=== PATIENT | male | born 1980 | race Caucasian/White ===

== ENCOUNTER → 2020-10-04 06:58 | Outpatient (CLI) | payer OTHER, SELFPAY ==
--- NOTE | ~2020-10-04 | XR_ITS ---
EXAMINATION: XR thoracic spine 3V DATE: 10/04/2020 07:09 INDICATION: Thoracic back pain TECHNIQUE: AP, lateral and lateral swimmer's views of the thoracic spine were obtained. COMPARISON: None. FINDINGS: There is no fracture, dislocation, or subluxation. The vertebral body heights, alignment, a nd intervertebral disc spaces are normal. The paravertebral soft tissues are unremarkable. There is m ild lower thoracic levocurvature. IMPRESSION: 1. No acute osseous abnormality. Reviewed, dictated and finalized at location B.
== END ==
PROVIDERS: PCP Family Medicine; Visit Provider Physician Assistant
DX: M54.9 Dorsalgia, unspecified (principal)
CPT/HCPCS: 72072

== ENCOUNTER 2021-10-26 14:40 | Emergency (ER) | payer OTHER, SELFPAY ==
[2021-10-26 14:47] VITALS: BP 132/62; PULSE 85; RESP 20; TEMP 36.7; O2SAT 99
--- NOTE | 2021-10-26 14:55 | ED.GENADULT ---
HPI - General Adult General Chief complaint: Skin/Abscess/Foreign Body Stated complaint: stung by wasp in chest Source: patient Mode of arrival: ambulatory Limitations: no limitations History of Present Illness HPI narrative: Patient presents for evaluation of swelling and redness to the right anterior chest wall. He indicates he was stung by a wasp in that area thirty minutes ago. He denies any difficulty breathing or swallowing. He had a similar response in the past in the LUE after being stung. In the past he received a steroid injection, oral steroids and abx. He has no other associated symptoms. Related Data Allergies Allergy/AdvReac Type Severity Reaction Status Date / Time No Known Allergies Allergy Unknown Verified 10/26/21 14:52 Review of Systems Review of Systems: CONSTITUTIONAL: Denies fever, chills, or sweats. EYES: Denies visual changes, redness, or discharge. ENT: Denies rhinorrhea, congestion, sore throat, or otalgia. CARDIOVASCULAR: Denies chest pain, palpitations, or edema. RESPIRATORY: Denies cough or dyspnea. GASTROINTESTINAL: Denies abdominal pain, nausea, vomiting, or diarrhea. GENITOURINARY: Denies dysuria or hematuria. SKIN: Reports redness and swelling to the right anterior chest wall MUSCULOSKELETAL: Denies back pain, joint pain, or myalgia. NEUROLOGIC: Denies headache, numbness, dizziness, or weakness. PSYCHIATRIC: Denies anxiety or depression. [facility] Past Medical History Medical History (Updated 10/26/21 @ 15:32 by Alin Ruby, SPEECH PATHOLOGIST ASSISTANT, ) ADHD Low testosterone level in male Migraine Surgical History Surgical History Hx of ESTHELA Family History Family History Father In good health Mother Breast cancer Bone cancer Skin cancer Heart disease Social History Social History (Updated 10/26/21 @ 15:09 by Alin Ruby [facility], ) Smoking status: Never smoker Second hand tobacco smoke exposure: No Alcohol intake: never Substance use: never Substance use type: does not use Living arrangements: with family Gender identity (if verbalized by the patient): Male Sexual Orientation (if Verbalized by the Patient): Straight or Heterosexual Spiritual care concerns: No Exam Narrative: GENERAL: Well-appearing, well-nourished, and in no acute distress. HEAD: Normocephalic, atraumatic. EYES: PERRLA and EOMI. ENT: Nares clear, no rhinorrhea or epistaxis. Mucous membranes moist. Oropharynx without tonsillar hypertrophy exudate or other lesions. Bilateral TMs pearly heart nonbulging NECK: Supple. No adenopathy or masses. No carotid bruits or JVD CHEST: Clear to auscultation. No respiratory distress. No wheezes rales or rhonchi HEART: Regular rate and rhythm. No murmur heard. Normal peripheral pulses. ABDOMEN: Soft, nontender, nondistended, normal active bowel sounds. EXTREMITIES: Normal range of motion. No edema. SKIN: Pinpoint puncture to right anterior chest wall with 8x9cm area of surrounding erythema in annular formation NEURO: No focal deficits. Alert and oriented x3. PSYCH: Normal mood and affect. Course Course Emergency Course: This is a 41-year-old male that presented following an insect sting. He was given solumedrol 125mg IM and benadryl 50mg PO while here. He was monitored here and was clinically stable. Will DC with prednisone and Benadryl. He should follow up outpatient for further evaluation and treatment and go to ER for respiratory distress or decline in condition. Patient in agreement with plan of care. Level of Care: Express Care Visit Vital Signs Vital signs: Vital Signs Temperature 36.7 C 10/26/21 14:47 Pulse Rate 85 10/26/21 14:47 Respiratory Rate 20 10/26/21 14:47 Blood Pressure 132/62 10/26/21 14:47 Pulse Oximetry 99 10/26/21 14:47 Oxygen Delivery Room Air 10/26/21 14:47 Temperature 36.7 C
[2021-10-26] MEDS: diphenhydrAMINE HCl CAP 25 MG CAPSULE 50 MG PO (15:02)
[2021-10-26] MEDS: methylPREDNISolone SOD SUCC 125 MG VIAL IM (15:02)
== END 2021-10-26 15:38 | disposition home or self-care (01) ==
PROVIDERS: Emergency Provider Nurse Practitioner; PCP Family Medicine
DX: T63.461A Toxic effect of venom of wasps, accidental (unintentional), initial encounter (principal)
CPT/HCPCS: 96372; 99213; A9270; G0463; J2930

== ENCOUNTER → 2022-03-15 08:00 | Outpatient (CLI) | payer OTHER, SELFPAY ==
--- NOTE | ~2022-03-15 | MR_ITS ---
EXAMINATION: MR brain/brain stem wo con DATE: 03/15/2022 08:48 INDICATION: Chronic migraine headache. TECHNIQUE: Magnetic resonance imaging (MRI) of the brain and brainstem was performed without intraven ous contrast. COMPARISON: Brain MRI 02/19/2017 FINDINGS: There is no intracranial hemorrhage, acute infarction, or abnormal intracranial mass lesion . The ventricles are normal in size. The mastoid air cells are normal. There is mild mucosal thickeni ng in the paranasal sinuses. The orbits are normal. IMPRESSION: 1. Normal brain. Reviewed, dictated and finalized at location A. [employer] IMPRESSION: 1. Normal brain.
== END ==
PROVIDERS: PCP Family Medicine; Visit Provider Family Medicine
DX: G43.709 Chronic migraine without aura, not intractable, without status migrainosus (principal); Z82.0 Family history of epilepsy and other diseases of the nervous system
CPT/HCPCS: 70551

== ENCOUNTER → 2022-05-12 08:13 | Outpatient (CLI) | payer OTHER, SELFPAY ==
--- NOTE | ~2022-05-12 | MR_ITS ---
MRI of the left shoulder Technique: Axial proton-density fat-sat images, coronal proton density fat-sat and T2 fat-sat images, and sagittal T1-weighted and T2 fat-sat images were acquired. Clinical History: Rotator cuff disorder Findings: There is no significant degenerative change of the AC joint. No subacromial spur. Coracocla vicular, coracoacromial, and coracohumeral ligaments are intact. Supraspinatus and infraspinatus tendons are intact, without partial or full-thickness tear. Subscapul luisana tendon is intact. Tendon of the long head of the biceps is intact. There is tearing of the anteroinferior labrum. No degenerative change or effusion of the glenohumeral joint. Inferior humeral ligament is intact. No fluid distention of subacromial/subdeltoid bursa. No muscle atrophy or edema identified. Incidental note is made of a 2 cm intramedullary lesion in the scapular spine, with an apparent thin hypointense margin, most compatible with a thin sclerotic margin, and central heterogeneous relative T2 hyperintensity overall (sagittal T2 fat-sat image 9, coronal image 18). Impression: Tearing of the anteroinferior labrum. Correlate for prior shoulder dislocation/Bankhart lesion. No rotator cuff abnormality seen. 2 cm intramedullary lesion in the scapular spine, as detailed above. Precise etiology is indeterminat e on this exam, but imaging features are consistent with a benign lesion. Reviewed, dictated and finalized at [facility]. ETTE DEALER Impression: Tearing of the anteroinferior labrum. Correlate for prior shoulder dislocation/ Bankhart lesion. No rotator cuff abnormality seen. 2 cm intramedullary lesion in the scapular spine, as detailed above. Precise et iology is indeterminate on this exam, but imaging features are consistent with a benign lesion.
== END ==
PROVIDERS: PCP Family Medicine; Visit Provider Family Medicine
DX: M67.912 Unspecified disorder of synovium and tendon, left shoulder (principal); M75.102 Unspecified rotator cuff tear or rupture of left shoulder, not specified as traumatic
CPT/HCPCS: 73221

== ENCOUNTER 2022-09-17 23:03 | Emergency (ER) | payer OTHER, SELFPAY ==
--- NOTE | ~2022-09-17 | XR_ITS ---
XR finger 1st RT min 2V 09/17/2022 23:33 INDICATION: Right second finger pain after injury PROCEDURE: 2 views right second finger COMPARISON: No prior studies for comparison. FINDINGS: Fracture, dislocation or subluxation is not identified. The soft tissues appear within norm al limits. No foreign bodies are identified. IMPRESSION: 1: NO ACUTE BONE OR JOINT ABNORMALITY IDENTIFIED. Reviewed, dictated and finalized at location L.
[2022-09-17 23:04] VITALS: BP 124/87; PULSE 57; RESP 18; TEMP 36.6; O2SAT 98
--- NOTE | 2022-09-18 00:40 | PC.NURSE ---
Pt asked this RN to clean his wound while he's waiting. Laceration cleansed with sterile saline. Clean gauze applied and secured with coban. Pt inquired about wait times. Informed pt that this RN cannot guarantee how much longer the wait will be. Pt states he wants to go home. This RN advised pt to return to ED immediately if he has any new or worsening symptoms, to follow up with his PCP in the morning, and monitor for signs of infection such as redness, swelling, foul drainage and fever. Pt verbalized understanding and ambulated out of department with steady gait.
== END 2022-09-18 01:34 | disposition left against medical advice (07) ==
LOC: ANHED 09-18 00:50
PROVIDERS: Emergency Provider Emergency Medicine; PCP Family Medicine
DX: S69.91XA Unspecified injury of right wrist, hand and finger(s), initial encounter (principal); Z53.21 Procedure and treatment not carried out due to patient leaving prior to being seen by health care provider; X58.XXXA Exposure to other specified factors, initial encounter
CPT/HCPCS: 73140; 99199

== ENCOUNTER 2023-03-09 09:26 | Emergency (ER) | payer OTHER, SELFPAY ==
--- NOTE | ~2023-03-09 | CT_ITS ---
EXAMINATION: CT abdomen pelvis w con DATE: 03/09/2023 13:36 INDICATION: Nausea, vomiting and diarrhea TECHNIQUE: Computed tomography (CT) of the abdomen and pelvis was performed with 100 cc Omnipaque 350 intravenous contrast. The dose-length product was 866.45 mGy-cm. Automated exposure control and iter ative reconstruction technique were employed. COMPARISON: No prior studies for comparison. FINDINGS: There is dependent atelectasis of the lung bases. Heart size normal. No significant pleural or pericardial effusion.. There is a liver cyst of the right hepatic lobe. The spleen, pancreas, adr enal glands and left kidney are unremarkable. There is a subcentimeter hypodensity of the right kidne y, most likely benign cysts. Gallbladder is present. No significant vascular abnormality. No lymphade nopathy. No free air or free fluid. Nonobstructive bowel pattern. Normal appendix. Colonic diverticul osis without evidence for diverticulitis. No abnormal pelvic masses or fluid collections. No acute os seous abnormality. IMPRESSION: 1. No acute abdominal abnormality. Reviewed, dictated and finalized at location B. ARCH SPECIALIST
--- NOTE | ~2023-03-09 | XR_ITS ---
EXAMINATION: XR chest 2V 03/09/2023 13:07 INDICATION: Epigastric pain PROCEDURE: 2 view chest COMPARISON: No prior studies for comparison. FINDINGS: The lungs are clear. The cardiomediastinal silhouette is within normal limits. There are no pleural effusions. There is no pneumothorax suspected. IMPRESSION: 1: NO ACUTE CARDIOPULMONARY DISEASE. Reviewed, dictated and finalized at location B. WORKER
--- NOTE | 2023-03-09 12:52 | ED.NAVMDI ---
HPI - Nausea/Vomiting/Diarrhea General Chief complaint: Nausea/Vomiting/Diarrhea <Geetha Justin PA-C - Last Filed: 03/09/23 13:08> Stated complaint: NV <Geetha Justin PA-C - Last Filed: 03/09/23 13:08> Time Seen by Provider: 03/09/23 13:55 <Geetha Justin PA-C - Last Filed: 03/09/23 13:08> History of Present Illness HPI Narrative: 42-year-old male for evaluation for nausea, bilious vomiting, diarrhea since 8:00 p.m. last night. Patient states he did have dinner last night, he ate chili for lunch around 1:00 p.m.. He reports associated suprapubic and right upper quadrant abdominal pain. Denies known fevers, chest pain or shortness of breath, dysuria or hematuria. Denies melena, hematochezia or hematemesis. <Geetha Justin PA-C - Last Filed: 03/09/23 13:08> Related Data Allergies/Adverse reactions: Allergies Allergy/AdvReac Type Severity Reaction Status Date / Time No Known Allergies Allergy Unknown Verified 03/09/23 12:49 <Geetha Justin PA-C - Last Filed: 03/09/23 13:08> Review of Systems Review of Systems: CONSTITUTIONAL: Denies fever, chills, or sweats. EYES: Denies visual changes, redness, or discharge. ENT: Denies rhinorrhea, congestion, sore throat, or otalgia. CARDIOVASCULAR: Denies chest pain, palpitations, or edema. RESPIRATORY: Denies cough or dyspnea. GASTROINTESTINAL: See HPI GENITOURINARY: Denies dysuria or hematuria. SKIN: Denies rash or itching. MUSCULOSKELETAL: Denies back pain, joint pain, or myalgia. NEUROLOGIC: Denies headache, numbness, or weakness. PSYCHIATRIC: Denies anxiety or depression. <Geetha Justin PA-C - Last Filed: 03/09/23 13:08> PMFSH Past Medical History Medical History: Medical History ADHD Low testosterone level in male Migraine <Geetha Justin PA-C - Last Filed: 03/09/23 13:08> Surgical History Surgical History: Surgical History Hx of LASIK <Geetha Justin PA-C - Last Filed: 03/09/23 13:08> Family History Family History: Family History Father In good health Mother Breast cancer Bone cancer Skin cancer Heart disease <Geetha Justin PA-C - Last Filed: 03/09/23 13:08> Social History Social History: Social History Smoking status: Never smoker Second hand tobacco smoke exposure: No Alcohol intake: never Substance use: never Substance use type: does not use Living arrangements: with family Gender identity (if verbalized by the patient): Male Sexual Orientation (if Verbalized by the Patient): Straight or Heterosexual Spiritual care concerns: No <Geetha Justin PA-C - Last Filed: 03/09/23 13:08> Exam Narrative: GENERAL: Well-appearing, well-nourished, and in no acute distress. HEAD: Normocephalic, atraumatic. ENT: Mucous membranes moist. NECK: Supple. CHEST: Clear to auscultation. No respiratory distress. HEART: Regular rate and rhythm. No murmur heard. Normal peripheral pulses. ABDOMEN: Normoactive bowel sounds. Abdomen soft with mild tenderness in the suprapubic region right upper quadrant. Negative Bojorquez's. No CVA tenderness. No guarding, rebound or rigidity. NEURO: No focal deficits. Alert and oriented x3 <Geetha Justin PA-C - Last Filed: 03/09/23 13:08> Course Course Emergency Course: Patient resting comfortably. Abdomen soft nontender. Patient hydrated and given antiemetics. Labs and imaging unremarkable. Patient felt appropriate for discharge home. <Horacio Rodriguez MD - Last Filed: 03/09/23 15:04> Vital Signs Vital signs: Vital Signs Pulse Rate 86 03/09/23 13:01 Respiratory Rate 18 03/09/23 13:01 Blood Pressure 119/76 03/09/23 13:01 Pulse Oximetry 98 03/09/23
[2023-03-09] MEDS: ONDANSETRON INJ 4 MG/2 ML VIAL IV PUSH ×2 (12:57→15:35)
[2023-03-09] MEDS: FAMOTIDINE 20 MG/2 ML VIAL IV PUSH (12:58)
[2023-03-09 13:01] VITALS: BP 119/76; PULSE 86; RESP 18; O2SAT 98
[2023-03-09 13:01] LABS: Basophils Percent Auto 0.2 % (0.2-1.2); Eosinophils Percent Auto 0.1 % (0-4.4); Hematocrit 48.5 % (42.0-52.0); Hemoglobin 16.9 g/dL (14.0-18.0); Immature Granulocyte Absolute 0.03 K/mm3 (0.00-0.031); Immature Granulocyte Percent A 0.3 % (0-0.5); Lymphocytes Absolute Auto 0.97 K/mm3 (0.9-3.2); Lymphocytes Percent Auto 9.4 % (18.3-44.2); Mean Corpuscular HGB Conc 34.8 g/dl (32-36); Mean Corpuscular Hemoglobin 30.4 pg (26-34); Mean Corpuscular Volume 87.2 fl (80-100); Mean Platelet Volume 8.1 fl (7.4-10.4); Monocytes Absolute Auto 0.7 K/mm3 (0.1-0.6); Monocytes Percent Auto 6.8 % (2.6-8.5); Neutrophils Absolute Auto 8.6 K/mm3 (1.3-6.7); Neutrophils Percent Auto 83.2 % (45.5-73.1); Platelet Count Result 203 k/mm3 (150-375); Red Blood Count 5.56 M/mm3 (4.6-6.20); Red Cell Distribution Width 11.9 % (11.5-14.5); White Blood Count 10.4 K/mm3 (4.5-10.0)
[2023-03-09 13:13] LABS: Alanine Aminotransferase 26 U/L (6-50); Albumin Level 4.6 g/dL (3.5-5.1); Alkaline Phosphatase 64 U/L (38-126); Anion Gap 12 mmol/L (8-16); Aspartate Amino Transferase 30 U/L (17-59); Bilirubin,Total 1.3 mg/dL (0.2-1.3); Blood Urea Nitrogen 16 mg/dL (9-20); Calcium 9.4 mg/dL (8.4-10.2); Carbon Dioxide 26 mmol/L (22-30); Chloride 100 mmol/L (98-107); Estimated CRCL calculation 90 ml/min; Estimated Glomerular Filt Rate > 60; Glucose 105 mg/dL (65-110); Lipase 104 U/L (23-300); Potassium 3.6 mmol/L (3.4-5.0); Sodium 138 mmol/L (137-145)
[2023-03-09 13:44] VITALS: BP 108/68; PULSE 96; RESP 18; TEMP 37; O2SAT 98
[2023-03-09] MEDS: SODIUM CHLORIDE 0.9% IV 1,000 ML 999 ML IV CONT (15:34)
[2023-03-09 16:37] VITALS: BP 125/79; PULSE 96; RESP 18; TEMP 36.8; O2SAT 98
== END 2023-03-09 16:30 | disposition home or self-care (01) ==
PROVIDERS: Physician Assistant; Emergency Provider Emergency Medicine; PCP Family Medicine
DX: R11.2 Nausea with vomiting, unspecified (principal)
CPT/HCPCS: 36415; 71046; 74177; 80053; 83690; 85025; 96361; 96374; 96375; 96376; 99284; J2405; J7030; Q9967

== ENCOUNTER 2024-05-04 21:08 | Emergency (ER) | payer OTHER, SELFPAY ==
--- NOTE | ~2024-05-04 | CT_ITS ---
EXAMINATION: CT brain wo con DATE: 05/04/2024 21:44 INDICATION: double vision and vision misalignment . TECHNIQUE: Computed tomography (CT) of the head was performed without intravenous contrast. The mA wa s adjusted according to patient size. Iterative reconstruction technique was employed. The dose-lengt h product was 681.00 mGy-cm. COMPARISON: MR brain 03/15/2022. FINDINGS: No acute intracranial hemorrhage or extra-axial fluid collection. No hydrocephalus, mass, or herniation. No acute ischemic infarct. Unremarkable dural venous sinus attenuation. No acute osseous abnormality. Retention cysts/polyps in the right maxillary sinus, the remaining aerated spaces are clear. IMPRESSION: No acute intracranial process. Reviewed, dictated and finalized at location K. SUPERVISOR
--- OUTSIDE RECORDS SUMMARY | 2024-05-04 21:10 | XMS_ITS | Referral Summary ---
Author Organization [facility] Address [address] [place] [id number] Care Team Providers Care Store Hand Name Role Phone Deon Coronel MD Primary Care Provider [phone] Shanae Aburto Unavailable [phone] Encounters Date Type Department Care Team Description 04/12/2024 9:04 AM SISAL OPERATOR - 04/12/2024 11:59 PM SISAL OPER[place] [address] Well adult exam; Screening for thyroid disorder; Screening, lipid; Low libido; Need for hepatitis B screening test Discharge Disposition: Discharge to home or self care 04/12/2024 9:00 AM SISAL OPERATOR Lab [facility] Outpatient Lab at [address] [phone] 04/12/2024 8:00 AM SISAL OPERATOR Office Visit [facility] Primary Care at [address] [phone] Deon Coronel MD Well adult exam (Primary Dx); Screening for thyroid disorder; Screening, lipid; Need for hepatitis B screening test; Low libido from Last 3 Months Allergies Active Allergy Reactions Criticality Noted Date Comments Wasp Venom Swelling Medium 12/26/2021 Medications multivitamin capsule Take 1 capsule by mouth daily Active EPINEPHrine 0.3 mg/0.3 mL auto-injection syringeIndication s:Anaphylaxis Inject 0.3 mL (0.3 mg total) into the muscle as instructed as needed for anaphylaxis Call 911 after use. 2 each 022 Active ondansetron ODT (ZOFRAN-ODT) 4 mg disintegrating tablet Take 1 tablet (4 mg total) by mouth every 8 (eight) hours as needed for nausea or vomiting 023 Active dextroamphetamine sulfate (DEXTROSTAT) 10 mg tabletIndications :Attention-Defici t Hyperactivity Disorder Take 1 tablet (10 mg total) by mouth teaching manager before breakfast 30 tablet 024 Active naproxen (NAPROSYN) 500 mg tablet TAKE 1 TABLET BY MOUTH TWICE A DAY WITH MEALS 60 tablet 024 2024 Discontinued Active Problems Problem Noted Date Diagnosed Date Low libido 04/12/2024 Chest pain 08/11/2023 Bankart lesion of left shoulder 11/25/2022 Well adult exam 03/02/2022 Assessment & Plan (04/12/2024 8:47 AM SISAL OPERATOR): A(n) yearly well adult visit has been performed today. Edin Petty is not up to date on screening tests. He is in need of thyroid screen, testosterone screen, Cholesterol screening, and Hepatitis B screen. He is up to date on needed preventative vaccinations. We discussed healthy lifestyle habits, educational material has been given. Medications reviewed, changes documented as per the medical record and discussed with patient along with risks vs benefits. Specific topics reviewed: drugs, ETOH, and tobacco, importance of regular dental care, importance of regular exercise, importance of varied diet, limit TV, media violence, minimize junk food, and seat belts. Return in 1 year Assessment & Plan (04/14/2023 11:34 AM SISAL OPERATOR): A(n) yearly well adult visit has been performed today. Edin Petty is not up to date on screening tests. He is in need of Cholesterol screening. He is not up to date on needed preventative vaccinations; He is in need of Influenza. We discussed healthy lifestyle habits, educational material has been given. Medications reviewed, changes documented as per the medical record and discussed with patient along with risks vs benefits. Return in 1 year Assessment & Plan (03/02/2022 2:28 PM SISAL OPERATOR): A(n) yearly well adult visit has been performed today. Edin Petty is up to date on screening tests. He is in need of None- no screening indicated at this time. He is not up to date on needed preventative vaccinations; He is in need of Influenza and Covid-19 (booster). Neuroimaging ordered for [facility] Trial Ubrelvy PRN 100 mg Labs as ordered Continuing current regimen otherwise Chronic migraine without aur a without status migrainosus, not intractable 12/26/2021 Residual hemorrhoidal skin tags 05/27/2021 Assessment & Plan (05/27/2021 12:55 PM SISAL OPERATOR): anusol HC x 2 weeks Referral to general surgeon entered Docusate (OTC) trial as well Try probiotic (Align, Culturelle, etc) x 2 weeks as well Medial epicondylitis of right elbow 02/02/2021 Attention deficit hyperactiv ity disorder (ADHD), combined type 01/30/2021 Overview (01/30/2021): Diagnosed in 2018 Migraine with aura 11/23/2013 Overview (07/11/2016): Migraine w/ aura Immunizations Name Administration Dates Next Due Influenza, Quadrivalent, Sara l Culture-based MDCK, Preservative Free, Antibiotic Free, Intramuscular 01/23/2021,01/07/2020 Influenza, Quadrivalent, Spl it, Preservative Free, Intramuscular 11/04/2013 Influenza, Trivalent, IM (MDV) 10/31/2013 Influenza, Unspecified 04/14/2023(Deferr ed: Patient Refused),04/06/2023(Deferred: Patient Refused),05/07/2022(Deferred: Patient Refused),04/06/2022(Deferred: Patient Refused),01/05/2022(Deferred: Patient Refused) TD Preservative Free 11/04/2013 Tdap 10/31/2013 Social History Tobacco Use Types Packs/Day Years Used Date Smoking Tobacco: Never Cigarettes Smokeless Tobacco: Never Tobacco Cessation:Counseling Given: Not Answered Alcohol Use Standard Drinks/Week Comments Yes 0 (1 standard drink = 0.6 oz pur e alcohol) Humiliation, Afraid, Rape, and Kick questionnair e Answer Date Recorded Within the last year, have y ou been afraid of your partner or ex-partner? No 01/30/2021 Within the last year, have y ou been humiliated or emotionally abused in other ways by your partner or ex-partner? No Within the last year, have y ou been kicked, hit, slapped, or otherwise physically hurt by your partner or ex-partner? No 01/30/2021 Within the last year, have y ou been raped or forced to have any kind of sexual activity by your partner or ex-partner? No 01/30/2021 AUDIT-C Answer Date Recorded Frequency of Alcohol Consumption Not on file 12/04/2022 Q2: How many drinks containi ng alcohol do you have on a typical day when you are drinking? Patient does not drink Frequency of Binge Drinking Not on file 11/06 PHQ-2 Answer Date Recorded PHQ-2 Total Score (If total score is 3 or more points, staff should administer the PHQ-9) 0 04/12/2024 Exercise Vital Sign Answer Date Recorde d On average, how many days pe r week do you engage in moderate to strenuous exercise (like a brisk walk)? 4 days 01/30/2021 On average, how many minutes do you engage in exercise at this level? 60 min 01/30/2021 Personal Safety Answer Date Recorded Have you ever been in or are you currently in a harmful physical or emotional relationship or is someone making you feel afraid or unsafe? Denies 12/11/2022 Education Answer Date Recorded What is the highest level of school you have completed or the highest degree you have received? 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 Last Filed Vital Signs Vital Sign Reading Time Taken Comments Blood Pressure 120/86 04/12/2024 8:13 AM SISAL OPERATOR Pulse 75 04/12/2024 8:13 AM SISAL OPERATOR Temperature 36.6 ??C (97.8 ??F) 04/12/2024 8:13 AM CS T Respiratory Rate 18 08/11/2023 10:02 AM CDT Oxygen Saturation 95% 04/12/2024 8:13 AM SISAL OPERATOR Inhaled Oxygen Concentration - - Weight 102.1 kg (225 lb) 04/12/2024 8:13 AM SISAL OPERATOR Height 185.4 cm (6' 1 ) 04/12/2024 8:13 AM SISAL OPERATOR Body Mass Index 29.69 04/12/2024 8:13 AM SISAL OPERATOR Plan of Treatment Not on file Medical Devices Implanted Type Area Cable Ferry Operator Device Identifier Shelf Expiration Date Model / Serial / Lot [employer] Deforest Suture 2.4mm Pushlock Biocomposite 11.3mm 1 Fiberwire [id number] - [id number] Implanted:Qty: 1 on 12/11/2022 by Drew Briscoe MD at [facility] Left: Shoulder [employer] 06/03/2024 AR-2922BC / / [id number] [employer] Deforest Suture 2.4mm Pushlock Biocomposite 11.3mm 1 Fiberwire [id number] - [id number] Implanted:Qty: 1 on 12/11/2022 by Drew Briscoe MD at [facility] Left: Shoulder [employer] 06/03/2024 AR-2922BC / / [id number] [employer] Deforest Suture 2.4mm Pushlock Biocomposite 11.3mm 1 Fiberwire [id number] - [id number] Implanted:Qty: 1 on 12/11/2022 by Drew Briscoe MD at [facility] Left: Shoulder [employer] 05/06/2024 AR-2922BC / / [id number] [employer] Fiberlink Arthrex Suturetape 1.3mm Tape Suture Nonabsorbable Ar-7535 - [id number] Implanted:Qty: 5 on 12/11/2022 by Drew Briscoe MD at [facility] Left: Shoulder [employer] AR-7535 / / [employer] Deforest Suture 2.4mm Pushlock Biocomposite 11.3mm 1 Fiberwire Ar-[id number] - [id number] Implanted:Qty: 1 on 12/11/2022 by Drew Briscoe MD at [facility] Left: Shoulder [employer] 06/03/2024 AR-2922BC / / [id number] [employer] Deforest Suture 2.4mm Pushlock Biocomposite 11.3mm 1 Fiberwire Ar-[id number] - [id number] Implanted:Qty: 1 on 12/11/2022 by Drew Briscoe MD at [facility] Left: Shoulder [employer] 06/03/2024 AR-2922BC / / [id number] Procedures Procedure Name Priority Date/Time Associated Diagnosis Comments EGFR Routine 04/12/2024 9:04 AM SISAL OPERATOR Well adult exam DIFFERENTIAL AUTO Routine 04/12/2024 9:0 4 AM SISAL OPERATOR Well adult exam TOTAL TESTOSTERONE Routine 04/12/2024 9: 04 AM SISAL OPERATOR Low libido TSH Routine 04/12/2024 9:04 AM SISAL OPERATOR Screening, lipid Low libido LIPID PANEL Routine 04/12/2024 9:04 AM SISAL OPERATOR Screening for thyroid disorder COMPREHENSIVE METABOLIC PANEL Routine 04/12/2024 9:04 AM SISAL OPERATOR Well adult exam CBC WITH AUTO DIFFERENTIAL Routine 04/12/2024 9:04 AM SISAL OPERATOR Well adult exam HEPATITIS B SURFACE ANTIBODY (IMMUNE STATUS) Routine 04/12/2024 9:04 AM SISAL OPERATOR Need for hepatitis B screening test HEPATITIS C ANTIBODY Routine 08/11/2023 10:56 AM CDT Encounter for hepatitis C screening test for low risk patient from Last 3 Months or Most Recently Relevant to Health Maintenance Results * eGFR (04/12/2024 9:04 AM SISAL OPERATOR) eGFR 79 >=60 mL/min/1. 73 m2 Comment: Interpretive Data Reference Interval Normal ?>/= 90 mL/min/1.73m2 Mildly decreased* ? 60 - 89 mL/min/1.73m2 Mildly to moderately decreased ?45 - 59 mL/min/1.73m2 Moderately to severely decreased ??30 - 44 mL/min/1.73m2 Severely decreased ?15 - 29 mL/min/1.73m2 Kidney Failure ?< 15 ??mL/min/1.73m2 *Relative to young adult level Estimated glomerular filtration rate is determined by the 2020 CKD-EPI equation recommended by the National Kidney Foundation (A Unifying Approach to GFR Estimation: Recommendations of the NKF-ASK Task Force on Reassessing the Inclusion of Race in Diagnosing Kidney Disease, JASN 2020). The CKD-EPI equation should not be used for patients with unstable renal function and has not been validated in children and those over 70. Current interpretive data was last reviewed 2021. Blood 04/12/2024 9:04 AM SISAL OPERATOR 04/12/2024 3:47 PM SISAL OPERATOR Deon Coronel MD LAB BLOOD ORDERABLES Final Result [facility] [id number] Department [place] [address] * Differential, auto (04/12/2024 9:04 AM SISAL OPERATOR) Neutrophil abs 3.6 1.5 - 6.5 K/cumm Imm gran abs 0.0 0.0 - 0.1 K/cumm [facility] Lymphocyte abs 2.9 0.8 - 3.3 K/cumm [facility] Monocyte abs 0.6 0.2 - 0.8 K/cumm [facility] Eosinophil abs 0.1 0.0 - 0.5 K/cumm [facility] Basophil abs 0.0 0.0 - 0.1 K/cumm [facility] Neutrophil pct 49.8 % [facility] Comment: Interpretive Data Percent cell count reference ranges are not reported, since discordance with absolute values may lead to misinterpretation of CBC data. Current Interpretive Data was last revised on 2017. Imm gran pct 0.3 % [facility] Comment: Interpretive Data Percent cell count reference ranges are not reported, since discordance with absolute values may lead to misinterpretation of CBC data. Current Interpretive Data was last revised on 2017. Lymphocyte pct 40.4 % [facility] Comment: Interpretive Data Percent cell count reference ranges are not reported, since discordance with absolute values may lead to misinterpretation of CBC data. Current Interpretive Data was last revised on 2017. Monocyte pct 7.8 % [facility] Comment: Interpretive Data Percent cell count reference ranges are not reported, since discordance with absolute values may lead to misinterpretation of CBC data. Current Interpretive Data was last revised on 2017. Eosinophil pct 1.2 % [facility] Comment: Interpretive Data Percent cell count reference ranges are not reported, since discordance with absolute values may lead to misinterpretation of CBC data. Current Interpretive Data was last revised on 2017. Basophil pct 0.5 % [facility] Comment: Interpretive Data Percent cell count reference ranges are not reported, since discordance with absolute values may lead to misinterpretation of CBC data. Current Interpretive Data was last revised on 2017. Blood 04/12/2024 9:04 AM SISAL OPERATOR 04/12/2024 3:33 PM SISAL OPERATOR us Deon Coronel MD LAB BLOOD ORDERABLES Final Result [facility] [address] [place] [address] * (ABNORMAL) CBC with auto differential (04/12/2024 9:04 AM SISAL OPERATOR) WBC 7.3 3.8 - 9.9 K/cumm Hgb 15.6 13.0 - 17.5 g/dL [facility] Hct 49.4 38.9 - 50.3 % [facility] Plt 250 150 - 400 K/cumm [facility] MPV 8.4(L) 9.1 - 12.3 fL [facility] RBC 5.42 4.30 - 5.80 M/cumm [facility] MCV 91.1 81.3 - 96.4 fL [facility] MCH 28.8 27.1 - 33.3 pg [facility] MCHC 31.6(L) 32.3 - 35.7 g/dL [facility] RDW CV 12.1 11.1 - 14.9 % [facility] RDW SD 40.4 35.7 - 48.1 fL [facility] NRBC abs 0.00 0.00 - 0.01 K/cumm [facility] Blood 04/12/2024 9:04 AM SISAL OPERATOR 04/12/2024 3:33 PM SISAL OPERATOR Deon Coronel MD LAB BLOOD ORDERABLES Final Result [facility] [address] [facility] Department [place] [address] * Hepatitis B surface antibody (immune status) Blood (04/12/2024 9:04 AM SISAL OPERATOR) Pathologist [facility] HBsAb (immune status) Reactive Comment: Interpretive Data Nonreactive: This result is consistent with a lack of immunity to Hepatitis B Virus when used in the setting of routine screening. Equivocal: The immune status of the individual should be further assessed, if appropriate, after consideration of clinical status, risk factors, and additional diagnostic information. Reactive: This result is consistent with immunity to Hepatitis B Virus when used in the setting of routine screening. Current interpretive data was last revised on 19. HBsAb (immune status) index 12.6 mIUnits/m L [facility] Blood 04/12/2024 9:04 AM SISAL OPERATOR 04/12/2024 3:33 PM SISAL OPERATOR Deon Coronel MD LAB MICROBIOLOGY - GENERAL ORDERABLES Final Result Performing Organization Address [facility] Co de Phone Number [facility] [address] [facility] [place] [address] * TSH (04/12/2024 9:04 AM SISAL OPERATOR) Thyroid Stimulating Hormone 3.84 0.30 - 4.20 mcIUnit/mL Blood 04/12/2024 9:04 AM SISAL OPERATOR 04/12/2024 3:33 PM SISAL OPERATOR Deon Coronel MD LAB BLOOD ORDERABLES Final Result Performing Organization Address [facility] Phone Number [facility] [address] [place] [address] * Total testosterone (04/12/2024 9:04 AM SISAL OPERATOR) Testosterone 304 249 - 836 ng/dL Blood 04/12/2024 9:04 AM SISAL OPERATOR 04/12/2024 3:33 PM SISAL OPERATOR Deon Coronel MD LAB BLOOD ORDERABLES Final Result Performing Organization Address [facility] Phone Number [facility] [id number] [place] [address] * Lipid panel (04/12/2024 9:04 AM SISAL OPERATOR) Cholesterol 168 30 - 199 mg/dL Comment: Interpretive Data Ages < or = 19 years ??Acceptable: ? <170 mg/dL ??Borderline high: ??170-199 mg/dL ??High: ? >or= 200 mg/dL Ages > or = 20 years ??Desirable: ?<200 mg/dL ??Borderline high: ??200-239 mg/dL ??High: ? >or= 240 mg/dL Literature References: 1. Expert Panel on Integrated Guidelines for Cardiovascular Health and Risk Reduction in Children and Adolescents. Pediatrics 2011;128:S213 2. NCEP Expert Panel. Circulation 2004;110:227 Current Interpretive Data was last revised on 2017. Triglycerides 77 <=149 mg/dL [facility] Comment: Interpretive Data Ages < or = 9 years ??Acceptable: ? <75 mg/dL ??Borderline high: ??75-99 mg/dL ??High: ? >or= 100 mg/dL Ages 10 to 20 years ??Acceptable: ? <90 mg/dL ??Borderline high: ??90-129 mg/dL ??High: ? >or= 130 mg/dL Ages > or = 20 years ??Desirable: ?<150 mg/dL ??Borderline high: ??150-199 mg/dL ??High: ? 200-499 mg/dL ?Very high: ?? >or= 499 mg/dL Literature References: 1. Expert Panel on Integrated Guidelines for Cardiovascular Health and Risk Reduction in Children and Adolescents. Pediatrics 2011;128:S213 2. NCEP Expert Panel. Circulation 2004;110:227 Current Interpretive Data was last revised on 2017. HDL 55 >=40 mg/dL [facility] Comment: Interpretive Data Ages < or = 19 years ??Acceptable: ? >45 mg/dL ??Borderline low: ?? 40-45 mg/dL ??Low: ? <40 mg/dL Ages > or = 20 years ??Desirable: ?>or= 60 mg/dL ??Low: ? <40 mg/dL Literature References: 1. Expert Panel on Integrated Guidelines for Cardiovascular Health and Risk Reduction in Children and Adolescents. Pediatrics 2011;128:S213 2. NCEP Expert Panel. Circulation 2004;110:227 Current Interpretive Data was last revised on 2017. LDL, calculated 98 <=129 mg/dL [facility] Comment: Interpretive Data Ages < or = 19 years ??Acceptable: ? <110 mg/dL ??Borderline high: ??110-129 mg/dL ??High: ?>or= 130 mg/dL Ages > or = 20 years ??Optimal: ? <100 mg/dL ??Near optimal: ?100-129 mg/dL ??Borderline high: ?? 130-159 mg/dL ??High: ?>160 mg/dL Calculated using the Nicolas LDL-C estimating equation. This equation was implemented on 2023. Prior to this date LDL-C was estimated using the Friedewald equation. Literature References: 1. Expert Panel on Integrated Guidelines for Cardiovascular Health and Risk Reduction in Children and Adolescents. Pediatrics 2011;128:S213 2. NCEP Expert Panel. Circulation 2004;110:227 3. Nicolas Bass et al. CLAUDE Cardiol. 2020 August 04;5(5):540-548. doi: 10.1001/jamacardio.2020.0013 Current Interpretive Data was last revised on 2023. Non-HDL Cholesterol 113 mg/dL [facility] Comment: Interpretive Data Ages < or = 19 years ??Acceptable: ?<120 mg/dL ??Borderline high: ??120-144 mg/dL ??High: ?>145 mg/dL Ages > or = 20 years ??When triglycerides are >200 mg/dL, Non-HDL cholesterol is a secondary target of ? therapy with treatment goals that are 30 mg/dL greater than the LDL cholesterol target. ? Literature References: 1. Expert Panel on Integrated Guidelines for Cardiovascular Health and Risk Reduction in Children and Adolescents. Pediatrics 2011;128:S213 2. NCEP Expert Panel. Circulation 2004;110:227 Current Interpretive Data was last revised on 2017. Chol/HDL ratio 3 [facility] Blood 04/12/2024 9:04 AM SISAL OPERATOR 04/12/2024 3:33 PM SISAL OPERATOR us Deon Coronel MD LAB BLOOD ORDERABLES Final Result [facility] [address] [place] [address] * Comprehensive metabolic panel (04/12/2024 9:04 AM SISAL OPERATOR) Sodium 141 135 - 145 mmol/L Potassium, pl 4.9 3.3 - 4.9 mmol/L [facility] Chloride 104 97 - 110 mmol/L [facility] CO2 26 22 - 32 mmol/L [facility] Anion gap 11 2 - 15 mmol/L [facility] BUN 15 6 - 25 mg/dL [facility] Creatinine 1.19 0.80 - 1.30 mg/dL [facility] Glucose 108 70 - 199 mg/dL [facility] Comment: Interpretive Data Fasting glucose >/= 126 mg/dl is diagnostic for diabetes. ?? Fasting is defined as no caloric intake for at least 8 hours. Fasting glucose between 100 mg/dl to 125 mg/dl is diagnostic of prediabetes. In a patient with classic symptoms of hyperglycemia or hyperglycemic crisis, a random glucose >/= 200 mg/dl is diagnostic for diabetes. In the absence of unequivocal hyperglycemia, results should be confirmed by repeat testing. The classification and Diagnosis of Diabetes Diabetes Care 202; 46: S19-S40. Current interpretive data was last revised 2022. Calcium 9.6 8.5 - 10.3 mg/dL [facility] Bilirubin, total 0.6 0.1 - 1.2 mg/dL [facility] Protein, pl 7.5 6.5 - 8.5 g/dL [facility] Albumin 4.5 3.5 - 5.0 g/dL [facility] Alk phos 51 40 - 130 Units/L [facility] ALT 24 7 - 55 Units/L [facility] AST 30 10 - 50 Units/L [facility] Blood 04/12/2024 9:04 AM SISAL OPERATOR 04/12/2024 3:33 PM SISAL OPERATOR us Deon Coronel MD LAB BLOOD ORDERABLES Final Result [facility] [address] [place] [address] * Hepatitis C antibody Blood (08/11/2023 10:56 AM CDT) Hep C Ab Nonreactive Nonreactive Comment: Interpretive Data Nonreactive: Antibodies to HCV not detected. Does NOT exclude the possibility of recent exposure to HCV. Equivocal: Equivocal for HCV antibodies. Supplemental molecular testing will be automatically performed to determine infection status in accordance with current CDC screening recommendations. ?? Reactive: Positive for HCV antibodies. ??This may represent current or past HCV infection. Supplemental molecular testing will be automatically performed to determine ??current infection status in accordance with current CDC screening recommendations. Interpretive data was last revised on 2019. Blood 08/11/2023 10:5 6 AM CDT 08/11/2023 7:26 PM CDT Deon Coronel MD LAB MICROBIOLOGY - GENERAL ORDERABLES Edited Result - Final Performing Organization Address City/State/ZIP Co ne Phone Number [facility] [id number] [place] [address] from Last 3 Months or Most Recently Relevant to Health Maintenance Insurance [employer] SIG [id number] [place] [address] [employer] SIG [id number] Care Teams Store Hand Relationship Specialty Start Date End Date Deon Coronel MD PCP - General Family Medicine 01/30/21 Shanae Aburto PA [address] [place] [address] [place] [address] Physician Housing Inspector Orthopedic Surgery 12/11/22
--- OUTSIDE RECORDS SUMMARY | 2024-05-04 21:10 | XMS_ITS | Clinical Summary ---
Author Organization [facility] [address] [place] [address] [facility] Address [address] [place] [id number] Care Team Providers Care Leak Detector Name Role Phone Deon Coronel MD Primary Care Provider [phone] Shanae Aburto Unavailable [phone] Allergies Active Allergy Reactions Criticality Noted Date [...] 1 tablet (10 mg total) by mouth chaser apprentice before breakfast 30 tablet 024 Active naproxen (NAPROSYN) 500 mg tablet TAKE 1 TABLET BY MOUTH TWICE A DAY WITH MEALS 60 tablet 024 2024 Discontinued Active Problems Problem Noted Date Diagnosed Date Low libido 04/12/2024 Chest pain 08/11/2023 Bankart lesion of left shoulder 11/25/2022 Well adult exam 03/02/2022 Assessment & Plan (04/12/2024 8:47 AM WELD LAY OUT WORKER): A(n) yearly well adult visit has been [...] year Assessment & Plan (04/14/2023 11:34 AM WELD LAY OUT WORKER): A(n) yearly well adult visit has been [...] year Assessment & Plan (03/02/2022 2:28 PM WELD LAY OUT WORKER): A(n) yearly well adult visit has been [...] 05/27/2021 Assessment & Plan (05/27/2021 12:55 PM WELD LAY OUT WORKER): anusol HC x 2 weeks Referral to general surgeon entered Docusate (OTC) trial as well Try probiotic (Align, Culturelle, etc) x 2 weeks as well Medial epicondylitis of right elbow 02/02/2021 Attention deficit hyperactiv ity disorder (ADHD), combined type 01/30/2021 Overview (01/30/2021): Diagnosed in 2018 Migraine with aura 11/23/2013 Overview (07/11/2016): Migraine w/ aura Encounters Date Type Department Care Team Description 04/12/2024 9:04 AM WELD LAY OUT WORKER - 04/12/2024 11:59 PM WELD LAY OUT WORKER Hospital Encounter [address] [address] Well adult exam; Screening for thyroid disorder; Screening, lipid; Low libido; Need for hepatitis B screening test Discharge Disposition: Discharge to home or self care 04/12/2024 9:00 AM WELD LAY OUT WORKER Lab [facility] Outpatient Lab at [address] [phone] 04/12/2024 8:00 AM WELD LAY OUT WORKER Office Visit [facility] Primary Care at [address] [phone] Deon Coronel MD Well adult exam (Primary Dx); Screening for thyroid disorder; Screening, lipid; Need for hepatitis B screening test; Low libido from Last 3 Months Immunizations Name Administration Dates Next Due Influenza, Quadrivalent, Sara l Culture-based MDCK, Preservative Free, Antibiotic Free, Intramuscular 01/23/2021,01/07/2020 Influenza, Quadrivalent, Spl it, Preservative Free, Intramuscular 11/04/2013 Influenza, Trivalent, IM (MDV) 10/31/2013 Influenza, Unspecified 04/14/2023(Deferr ed: Patient Refused),04/06/2023(Deferred: Patient Refused),05/07/2022(Deferred: Patient Refused),04/06/2022(Deferred: Patient Refused),01/05/2022(Deferred: Patient Refused) TD Preservative Free 11/04/2013 Tdap 10/31/2013 Surgical History Surgery Date Site/Laterality Comments VASECTOMY 04/06/2013 - 04/05/2014 vasectomy LASIK 04/06/2005 - 04/05/2006 EYE SURGERY 04/06/2011 - 04/05/2012 touch up PRK HEMORRHOID SURGERY 07/01/2021 SHOULDER SURGERY 12/11/2022 Left Medical History Medical History Date Comments Migraines 1994 Attention deficit hyperactiv ity disorder (ADHD), combined type 01/30/2021 Diagnosed in 2018 Constipation Family History Medical History Relation Name Comments Other Father Alive and well; Lung cancer Father's Brother No Known Problems Maternal Grandfather No Known Problems Maternal Grandmother Bone cancer Mother Nevin Breast cancer Mother Nevin Cancer Mother Nevin Lung cancer Mother Nevin sarcoma, metast atic from leg coronary anomaly Mother Nevin Breast cancer Other Family history of Cancer, breast; No Known Problems Paternal Grandfather No Known Problems Paternal Grandmother Multiple sclerosis Sister Multiple sclerosis; Relation Name Status Comments Father Alive Father's Brother Maternal Grandfather Maternal Grandmother Mother Nevin Alive Other Paternal Grandfather Paternal Grandmother Sister Alive Social History Tobacco Use Types Packs/Day Years [...] Master's degree (e.g., MA, MS, Srinath, MEd, LABORER [employer], [employer]) 01/30/2021 Sex and Gender Information Value Date Recorded Sex Assigned at Not on file Legal Sex Male 5:49 PM WELD LAY OUT WORKER Gender Identity Not on file Sexual Orientation Straight 01/23/2021 11 :47 AM CDT 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 Obstetrics History Last Filed Vital Signs Vital Sign Reading Time Taken Comments Blood Pressure 120/86 04/12/2024 8:13 AM WELD LAY OUT WORKER Pulse 75 04/12/2024 8:13 AM WELD LAY OUT WORKER Temperature 36.6 ??C (97.8 ??F) 04/12/2024 8:13 AM CS T Respiratory Rate 18 08/11/2023 10:02 AM CDT Oxygen Saturation 95% 04/12/2024 8:13 AM WELD LAY OUT WORKER Inhaled Oxygen Concentration - - Weight 102.1 kg (225 lb) 04/12/2024 8:13 AM WELD LAY OUT WORKER Height 185.4 cm (6' 1 ) 04/12/2024 8:13 AM WELD LAY OUT WORKER Body Mass Index 29.69 04/12/2024 8:13 AM WELD LAY OUT WORKER Plan of Treatment Health Maintenance Due Date Last Done Comments Hepatitis B Screening 2000 Influenza Vaccine (#1) 2024 , 01/07/2020, 11/04/2013, Additional history exists Postponed from 12/06/2023 (Patient declined, but will receive in the future) DTaP/Tdap/Td Vaccine (3 - Td or Tdap) 04/06/2025 11/04/2013, 10/31/2013 Postponed from 11/05/2023 (Patient declined, but will receive in the future) Depression Screening 04/12/2025 04/12/2024, 08/11/2023, 04/14/2023, Additional history exists Regular Well Visit/Exam 18-64 04/12/2025 04/12/2024, 04/14/2023, 02/26/2022, Additional history exists Covid-19 Vaccine Discontinued 04/18/2021, , 06/29/2020 Hepatitis C Screening Completed 08/11/2023 HPV Vaccines Aged Out No longer eligi ble based on patient's age to complete this topic Pneumococcal vaccine <65 Aged Out No longer eligible based on patient's age to complete this topic Varicella Vaccines Discontinued Medical Devices Implanted Type Area Paraprofessional Education Assistant Device Identifier Shelf Expiration Date Model / Serial / Lot [employer] [place] Suture 2.4mm Pushlock Biocomposite 11.3mm 1 Fiberwire [id number] - [id number] Implanted:Qty: 1 on 12/11/2022 by Drew Briscoe MD at [facility] Left: Shoulder [employer] 06/03/2024 AR-2922BC / / [id number] [employer] [place] Suture 2.4mm Pushlock Biocomposite 11.3mm 1 Fiberwire [id number] - [id number] Implanted:Qty: 1 on 12/11/2022 by Drew Briscoe MD at [facility] Left: Shoulder [employer] 06/03/2024 AR-2922BC / / [id number] [employer] [place] Suture 2.4mm Pushlock Biocomposite 11.3mm 1 Fiberwire [id number] - [id number] Implanted:Qty: 1 on 12/11/2022 by Drew Briscoe MD at [facility] Left: Shoulder [employer] 05/06/2024 AR-2922BC / / [id number] [employer] Fiberlink Arthrex Suturetape 1.3mm Tape Suture Nonabsorbable Ar-7535 - [id number] Implanted:Qty: 5 on 12/11/2022 by Drew Briscoe MD at [facility] Left: Shoulder [employer] AR-7535 / / [employer] [place] Suture 2.4mm Pushlock Biocomposite 11.3mm 1 Fiberwire Ar-2922bc - [id number] Implanted:Qty: 1 on 12/11/2022 by Drew Briscoe MD at [facility] Left: Shoulder [employer] 06/03/2024 AR-2922BC / / [id number] [employer] [place] Suture 2.4mm Pushlock Biocomposite 11.3mm 1 Fiberwire Ar-2922bc - [id number] Implanted:Qty: 1 on 12/11/2022 by Drew Briscoe MD at [facility] Left: Shoulder [employer] 06/03/2024 AR-2922BC / / [id number] Procedures Procedure Name Priority Date/Time Associated Diagnosis Comments EGFR Routine 04/12/2024 9:04 AM WELD LAY OUT WORKER Well adult exam DIFFERENTIAL AUTO Routine 04/12/2024 9:0 4 AM WELD LAY OUT WORKER Well adult exam TOTAL TESTOSTERONE Routine 04/12/2024 9: 04 AM WELD LAY OUT WORKER Low libido TSH Routine 04/12/2024 9:04 AM WELD LAY OUT WORKER Screening, lipid Low libido LIPID PANEL Routine 04/12/2024 9:04 AM WELD LAY OUT WORKER Screening for thyroid disorder COMPREHENSIVE METABOLIC PANEL Routine 04/12/2024 9:04 AM WELD LAY OUT WORKER Well adult exam CBC WITH AUTO DIFFERENTIAL Routine 04/12/2024 9:04 AM WELD LAY OUT WORKER Well adult exam HEPATITIS B SURFACE ANTIBODY (IMMUNE STATUS) Routine 04/12/2024 9:04 AM WELD LAY OUT WORKER Need for hepatitis B screening test HEPATITIS C ANTIBODY Routine 08/11/2023 10:56 AM CDT Encounter for hepatitis C screening test for low risk patient from Last 3 Months or Most Recently Relevant to Health Maintenance Results * eGFR (04/12/2024 9:04 AM WELD LAY OUT WORKER) eGFR 79 >=60 mL/min/1. 73 m2 Comment: [...] last reviewed 2021. Blood 04/12/2024 9:04 AM WELD LAY OUT WORKER 04/12/2024 3:47 PM WELD LAY OUT WORKER us Deon Coronel MD LAB BLOOD ORDERABLES Final Result [facility] [address] [place] [address] * Differential, auto (04/12/2024 9:04 AM WELD LAY OUT WORKER) Pathologist [facility] Neutrophil abs 3.6 1.5 - 6.5 K/cumm Imm gran abs 0.0 0.0 - 0.1 K/cumm [facility] Lymphocyte abs 2.9 0.8 - 3.3 K/cumm [facility] Monocyte abs 0.6 0.2 - 0.8 K/cumm [facility] Eosinophil abs 0.1 0.0 - 0.5 K/cumm [facility] Basophil abs 0.0 0.0 - 0.1 K/cumm [facility] Neutrophil pct 49.8 % [facility] Comment: Interpretive Data Percent cell count reference ranges are not reported, since discordance with absolute values may lead to misinterpretation of CBC data. Current Interpretive Data was last revised on 2017. Imm gran pct 0.3 % [facility] Comment: Interpretive Data Percent cell count reference ranges are not reported, since discordance with absolute values may lead to misinterpretation of CBC data. Current Interpretive Data was last revised on 2017. Lymphocyte pct 40.4 % [facility] Comment: Interpretive Data Percent cell count reference ranges are not reported, since discordance with absolute values may lead to misinterpretation of CBC data. Current Interpretive Data was last revised on 2017. Monocyte pct 7.8 % [facility] Comment: Interpretive Data Percent cell count reference ranges are not reported, since discordance with absolute values may lead to misinterpretation of CBC data. Current Interpretive Data was last revised on 2017. Eosinophil pct 1.2 % [facility] Comment: Interpretive Data Percent cell count reference ranges are not reported, since discordance with absolute values may lead to misinterpretation of CBC data. Current Interpretive Data was last revised on 2017. Basophil pct 0.5 % [facility] Comment: Interpretive Data Percent cell count reference ranges are not reported, since discordance with absolute values may lead to misinterpretation of CBC data. Current Interpretive Data was last revised on 2017. Blood 04/12/2024 9:04 AM WELD LAY OUT WORKER 04/12/2024 3:33 PM WELD LAY OUT WORKER us Deon Coronel MD LAB BLOOD ORDERABLES Final Result [facility] [address] Department [place] [address] * (ABNORMAL) CBC with auto differential (04/12/2024 9:04 AM WELD LAY OUT WORKER) WBC 7.3 3.8 - 9.9 K/cumm Hgb 15.6 13.0 - 17.5 g/dL [facility] Hct 49.4 38.9 - 50.3 % [facility] Plt 250 150 - 400 K/cumm [facility] MPV 8.4(L) 9.1 - 12.3 fL [facility] RBC 5.42 4.30 - 5.80 M/cumm [facility] MCV 91.1 81.3 - 96.4 fL [facility] MCH 28.8 27.1 - 33.3 pg [facility] MCHC 31.6(L) 32.3 - 35.7 g/dL [facility] RDW CV 12.1 11.1 - 14.9 % [facility] RDW SD 40.4 35.7 - 48.1 fL [facility] NRBC abs 0.00 0.00 - 0.01 K/cumm [facility] Blood 04/12/2024 9:04 AM WELD LAY OUT WORKER 04/12/2024 3:33 PM WELD LAY OUT WORKER Deon Coronel MD LAB BLOOD ORDERABLES Final Result [facility] [address] [facility] Department of Laboratories [place] [id number] * Hepatitis B surface antibody (immune status) Blood (04/12/2024 9:04 AM WELD LAY OUT WORKER) HBsAb (immune status) Reactive Comment: Interpretive Data [...] HBsAb (immune status) index 12.6 mIUnits/m L [facility] Blood 04/12/2024 9:04 AM WELD LAY OUT WORKER 04/12/2024 3:33 PM WELD LAY OUT WORKER Deon Coronel MD LAB MICROBIOLOGY - GENERAL ORDERABLES Final Result Performing Organization Address [facility] Co de Phone Number [facility] [address] [facility] [place] [address] * TSH (04/12/2024 9:04 AM WELD LAY OUT WORKER) Thyroid Stimulating Hormone 3.84 0.30 - 4.20 mcIUnit/mL Blood 04/12/2024 9:04 AM WELD LAY OUT WORKER 04/12/2024 3:33 PM WELD LAY OUT WORKER Deon Coronel MD LAB BLOOD ORDERABLES Final Result Performing Organization Address [facility] de Phone Number [facility] [address] [place] [address] * Total testosterone (04/12/2024 9:04 AM WELD LAY OUT WORKER) Testosterone 304 249 - 836 ng/dL Blood 04/12/2024 9:04 AM WELD LAY OUT WORKER 04/12/2024 3:33 PM WELD LAY OUT WORKER Deon Coronel MD LAB BLOOD ORDERABLES Final Result Performing Organization Address [facility] de Phone Number [facility] [address] [place] [address] * Lipid panel (04/12/2024 9:04 AM WELD LAY OUT WORKER) Cholesterol 168 30 - 199 mg/dL Comment: [...] 3 [facility] Blood 04/12/2024 9:04 AM WELD LAY OUT WORKER 04/12/2024 3:33 PM WELD LAY OUT WORKER us Deon Coronel MD LAB BLOOD ORDERABLES Final Result [facility] [address] Department [place] [address] * Comprehensive metabolic panel (04/12/2024 9:04 AM WELD LAY OUT WORKER) Sodium 141 135 - 145 mmol/L Potassium, [...] classification and Diagnosis of Diabetes Diabetes Care 2021; 46: S19-S40. Current interpretive data was last [...] Units/L [facility] Blood 04/12/2024 9:04 AM WELD LAY OUT WORKER 04/12/2024 3:33 PM WELD LAY OUT WORKER us Deon Coronel MD LAB BLOOD ORDERABLES Final Result [facility] Department [place] [address] * Hepatitis C antibody Blood (08/11/2023 10:56 [...] Organization Address City/State/ZIP Co ne Phone Number [facility] [address] [place] [address] from Last 3 Months or Most Recently Relevant to Health Maintenance Insurance [employer] SIG [id number] [employer] [place] [id number] [place] [address] [employer] SIG [id number] Care Teams Leak Detector Relationship Specialty Start Date End Date Deon Coronel MD PCP - General Family Medicine 01/30/21 Shanae Aburto PA [address] [place] [address] [place] [address] Physician Aeronautical Design Engineer Orthopedic Surgery 12/11/22
--- OUTSIDE RECORDS SUMMARY | 2024-05-04 21:10 | XMS_ITS | Continuity of Care Document ---
Author Organization [facility] Address [address] [place] [address] Phone Care Team Providers Care Tractor Operator Battery Name Role Phone Daniel PT,MPT,ATC, Bakari Unavailable [...] Diagnoses Date Provider Providers Copied on Encounter [facility], [place], [place], [id number], [place] tel:[phone] [place] Pain in right lower leg DANE May, [place]. [facility], [place], [place], [id number], tel:[phone] [place] Pain in right lower leg DANE May, [place]. [facility], [place], [place], [id number], tel:[phone] [place] Pain in right lower leg Daniel Avendano [place], [place]. [facility], [place], [place], [id number], tel:[phone] [place] Pain in right lower leg Daniel Avendano , [place], [place]. [facility], [place], [place], [id number], tel:[phone] [place] Pain in right lower leg Anjelica Brand. . [facility], [place], [place], [id number], tel:[phone] [place] Pain in right lower leg Daniel Avendano [place], [place]. [facility], [place], [place], [id number], tel:[phone] [place] Pain in right lower leg Daniel Avendano [place], [place]. Family History Family Member Type Diagnosis Age At Onset No Information Payers Payer name Insurance type Covered green party ID Reagan meyers(lianne Esposito [id number] Social History Type Description Quantity Date Captured [...]
[2024-05-04 21:12] VITALS: BP 133/91; PULSE 67; RESP 18; TEMP 36.1; O2SAT 93
--- NOTE | 2024-05-04 21:26 | ED.NEUROSD ---
HPI - Neuro Symptoms/Deficit General Chief Complaint: Eye Problems Stated Complaint: double vision Time Seen by Provider: 05/04/24 21:25 Source: patient Mode of arrival: ambulatory Limitations: no limitations History of Present Illness HPI Narrative: 43-year-old male with a history of migraine with an aura which include scotomata in the right field of vision presented to the ED with a 1 hour history of -- double vision. the patient did not have any headache. The double vision resolved by the time the patient presented to the ED. no focal neuro deficits noted. Onset (ago): hour(s) ( 1 hour) Time: 21:12 Last Observed Normal: 20:00 Timing confirmed by: spouse History of same: Yes Relieving factors: none Exacerbating factors: none Context: sudden onset On Anticoagulants: No Associated symptoms: denies other symptoms Treatments Prior to Arrival: none Related Data Home Medications ?Medication ?Instructions ?Recorded ?Confirmed ?Last Taken ?Type No Home Medications 05/04/24 05/04/24 Unknown History Allergies Allergy/AdvReac Type Severity Reaction Status Date / Time No Known Allergies Allergy Unknown Verified 05/04/24 21:33 Review of Systems Review of Systems: All systems reviewed & are unremarkable except as noted in HPI and below Constitutional: Constitutional: Reports as per HPI and Reports no additional constitutional complaints Eyes: Eyes: Reports as per HPI, Reports no additional eye complaints and Reports change in vision Comments: double vision ENT: Reports system reviewed and no additional complaints, except as documented and Reports as per HPI Cardiovascular: Cardiovascular: Reports as per HPI and Reports no additional cardiovascular complaints Respiratory: Respiratory: Reports as per HPI and Reports no additional respiratory complaints Gastrointestinal: Gastrointestinal: Reports as per HPI and Reports no additional gastrointestinal complaints Genitourinary: Genitourinary: Reports no additional male genitourinary complaints and Reports as per HPI Musculoskeletal: Musculoskeletal: Reports no additional musculoskeletal complaints and Reports as per HPI Integumentary/Breasts: Skin/Breast: Reports system reviewed and no additional complaints, except as docu and Reports as per HPI Neurologic: Reports system reviewed and no additional complaints, except as documented Comments: acute onset double vision which resolved spontaneously. No accompanying headache Psychiatric: Psychiatric: Reports no additional psychiatric complaints and Reports as per HPI Endocrine: Endocrine: Reports no additional endocrine complaints and Reports excessive sweating Hematologic/Lymphatic: Hematologic/Lymphatic: Reports no additional hematologic/lymphatic complaints and Reports as per HPI Allergic/Immunologic: Allergic/Immunologic: Reports no additional allergic/immunologic complaints and Reports as per HPI [facility] Past Medical History Medical History Low testosterone level in male Migraine ADHD Surgical History Surgical History Hx of LASIK Family History Family History Father In good health Mother Breast cancer Bone cancer Skin cancer Heart disease Social History Social History Smoking status: Never smoker Second hand tobacco smoke exposure: No Alcohol intake: never Substance use: never Substance use type: does not use Living arrangements: with family Gender identity (if verbalized by the patient): Male Sexual Orientation (if Verbalized by the Patient): Straight or Heterosexual Spiritual care concerns: No Exam Narrative: blood pressure 133/91. Pulse of 67. Tempera Const: General: healthy appearing and no acute distress Nutritional Appearance: well nourished Orientation/consciousness: patient oriented x3 Limitations: no limitations HENMT: Head: normal to inspection Ears: external ears normal Face/Nose/Sinus: Normal external nose present Face and sinus: normal facial exam Throat: posterior oropharynx normal Eyes: Conjunctivae: conjunctivae normal Pupils: Equal, round and reactive pupils present EOM: EOMs intact bilaterally Direct Ophthalmoscopy: no photophobia Neck: Neck: normal visual inspection, no lymphadenopathy and no meningeal signs Chest: Chest palpation & inspection: normal inspection of the chest Resp: Effort & Inspection: normal respiratory effort Auscultation: clear to auscultation bilaterally Cardio: Rate: regular rate Rhythm: regular rhythm GI: GI Palp: Yes Soft to palpation Other: no tenderness/ rigidity /rebound. : General: Yes no CVA tenderness Back/Spine/Pelvis: Back: no CVA tenderness Skin: General skin exam: normal color Rashes: no rashes Wounds: no wounds Neuro: General: patient oriented x3, moves all extremities, no meningeal signs, no focal motor deficits and CN's II-XI intact bilaterally Cranial nerves: Yes Nystagmus not present Speech: normal speech Gait exam (Neuro): Normal gait present Extrem: General: normal to inspection and no clubbing, cyanosis or edema Psych: Mental Status: mental status grossly normal Affect: normal affect Attitude: cooperative Course Course Emergency Course: Double vision possibly secondary to complicated migraine-- patient has a history of migraine with aura involving loss of the right field of vision. The patient has never had double vision. The patient presents with double vision with spontaneous resolution. Patient has been worked up in the past. Further complicated migraine including CT and MRI Vital Signs Vital signs: Vital Signs Temperature 36.1 C L 05/04/24 21:12 Pulse Rate 67 05/04/24 21:12 Respiratory Rate 18 05/04/24 21:12 Blood Pressure 133/91 H 05/04/24 21:12 Pulse Oximetry 93 05/04/24 21:12 Oxygen Delivery Room Air 05/04/24 21:12 Temperature 36.1 C L 05/04/24 21:12 Pulse Rate 67 05/04/24 21:12 Respiratory Rate 18 05/04/24 21:12 Blood Pressure 133/91 H 05/04/24 21:12 Pulse Oximetry 93 05/04/24 21:12 Oxygen Delivery Room Air 05/04/24 21:12 MDM - Neuro Symptoms/Deficit MDM Narrative Medical decision making narrative: Double vision secondary to complicated migraine/TIA the patient does not have any other focal neuro deficits. No history of trauma. No evidence of infection. Differential Diagnosis Differential diagnosis: Likely cerebrovascular accident Lab Data Attestation: I reviewed the patient's lab results. Discharge Plan Discharge Clinical Impression: Diplopia Patient Disposition: Home, Self-Care Condition: Stable Instructions: Antibiotic Form, Diplopia (ED) Additional Instructions: advised the patient to follow up with Neurology. Patient Language: [place] Prescriptions: No Action No Home Medications Follow-up/Referrals: UNKNOWN,DOCTOR [Non-Staff] - Time of Disposition: 22:30
--- OUTSIDE RECORDS SUMMARY | 2024-05-04 21:55 | XMS_ITS | Continuity of Care Document ---
Author Organization [facility] Address [address] [place] [address] Phone Care Team Providers Care Contact Acid Plant Operator Helper Name Role Phone Daniel PT,MPT,ATC, Bakari Unavailable [...] Diagnoses Date Provider Providers Copied on Encounter [facility], [place], [place], [id number], [place] tel:[phone] [place] Pain in right lower leg DANE [place], [place]. [facility], [place], [place], [id number], tel:[phone] [place] Pain in right lower leg DANE [place], [place]. [facility], [place], [place], [id number], tel:[phone] [place] Pain in right lower leg Daniel Avendano [place], [place]. [facility], [place], [place], [id number], tel:[phone] [place] Pain in right lower leg Daniel Avendano , [place], [place]. [facility], [place], [place], [id number], tel:[phone] [place] Pain in right lower leg Anjelica Brand. . [facility], [place], [place], [id number], tel:[phone] [place] Pain in right lower leg Daniel Avend[place], [place]. [facility], [place], [place], [id number], tel:[phone] [place] Pain in right lower leg Daniel Avendano [place], [place]. Family History Family Member Type Diagnosis Age At Onset No Information Payers Payer name Insurance type Covered republican ID Reagan meyers(lianne Esposito [id number] Social History Type Description Quantity Date Captured [...]
--- OUTSIDE RECORDS SUMMARY | 2024-05-04 21:55 | XMS_ITS | Clinical Summary ---
Author Organization [facility] [address] [place] [address] [facility] Address [address] [place] [id number] Care Team Providers Care Research Associate Name Role Phone Deon Coronel MD Primary Care Provider [phone] Shanae Aburto Unavailable [phone] Allergies Active Allergy Reactions Criticality Noted Date [...] 1 tablet (10 mg total) by mouth band instrument repairer before breakfast 30 tablet 024 Active naproxen (NAPROSYN) 500 mg tablet TAKE 1 TABLET BY MOUTH TWICE A DAY WITH MEALS 60 tablet 024 2024 Discontinued Active Problems Problem Noted Date Diagnosed Date Low libido 04/12/2024 Chest pain 08/11/2023 Bankart lesion of left shoulder 11/25/2022 Well adult exam 03/02/2022 Assessment & Plan (04/12/2024 8:47 AM DIETARY SERVICES DIRECTOR): A(n) yearly well adult visit has been [...] year Assessment & Plan (04/14/2023 11:34 AM DIETARY SERVICES DIRECTOR): A(n) yearly well adult visit has been [...] year Assessment & Plan (03/02/2022 2:28 PM DIETARY SERVICES DIRECTOR): A(n) yearly well adult visit has been [...] 05/27/2021 Assessment & Plan (05/27/2021 12:55 PM DIETARY SERVICES DIRECTOR): anusol HC x 2 weeks Referral to [...] Department Care Team Description 04/12/2024 9:04 AM DIETARY SERVICES DIRECTOR - 04/12/2024 11:59 PM DIETARY SERVICES DIRECTOR Hospital Encounter [address] [address] Well adult exam; Screening for thyroid disorder; Screening, lipid; Low libido; Need for hepatitis B screening test Discharge Disposition: Discharge to home or self care 04/12/2024 9:00 AM DIETARY SERVICES DIRECTOR Lab [facility] Outpatient Lab at [address] [phone] 04/12/2024 8:00 AM DIETARY SERVICES DIRECTOR Office Visit [facility] Primary Care at [address] [phone] Deon Coronel MD Well adult exam (Primary [...] Master's degree (e.g., MA, MS, Srinath, MEd, VIOLENT CRIMES DETECTIVE, ANDRESSA) 01/30/2021 Sex and Gender Information Value Date Recorded Sex Assigned at Not on file Legal Sex Male 5:49 PM DIETARY SERVICES DIRECTOR Gender Identity Not on file Sexual Orientation Straight 01/23/2021 11 :47 AM CDT 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 Obstetrics History Last Filed Vital Signs Vital Sign Reading Time Taken Comments Blood Pressure 120/86 04/12/2024 8:13 AM DIETARY SERVICES DIRECTOR Pulse 75 04/12/2024 8:13 AM DIETARY SERVICES DIRECTOR Temperature 36.6 ??C (97.8 ??F) 04/12/2024 8:13 AM CS T Respiratory Rate 18 08/11/2023 10:02 AM CDT Oxygen Saturation 95% 04/12/2024 8:13 AM DIETARY SERVICES DIRECTOR Inhaled Oxygen Concentration - - Weight 102.1 kg (225 lb) 04/12/2024 8:13 AM DIETARY SERVICES DIRECTOR Height 185.4 cm (6' 1 ) 04/12/2024 8:13 AM DIETARY SERVICES DIRECTOR Body Mass Index 29.69 04/12/2024 8:13 AM DIETARY SERVICES DIRECTOR Plan of Treatment Health Maintenance Due Date [...] Vaccines Discontinued Medical Devices Implanted Type Area Marine Reporter Device Identifier Shelf Expiration Date Model / Serial / Lot [employer] [place] Suture 2.4mm Pushlock Biocomposite 11.3mm 1 Fiberwire Ar-2922bc - [id number] Implanted:Qty: 1 on 12/11/2022 by Drew Briscoe MD at [facility] Left: Shoulder [employer] 06/03/2024 AR-2922BC / / [id number] [employer] [place] Suture 2.4mm Pushlock Biocomposite 11.3mm 1 Fiberwire Ar-2922bc - [id number] Implanted:Qty: 1 on 12/11/2022 by Drew Briscoe MD at [facility] Left: Shoulder [employer] 06/03/2024 AR-2922BC / / [id number] [employer] [place] Suture 2.4mm Pushlock Biocomposite 11.3mm 1 Fiberwire Ar-2922bc - [id number] Implanted:Qty: 1 on 12/11/2022 by Drew Briscoe MD at [facility] Left: Shoulder [employer] 05/06/2024 AR-2922BC / / [id number] [employer] Fiberlink Arthrex Suturetape 1.3mm Tape Suture Nonabsorbable Ar-7535 - [id number] Implanted:Qty: 5 on 12/11/2022 by Drew Briscoe MD at [facility] Left: Shoulder [employer] AR-7535 / / [employer] [place] Suture 2.4mm Pushlock Biocomposite 11.3mm 1 Fiberwire Ar-2922bc - [id number] Implanted:Qty: 1 on 12/11/2022 by Drew Briscoe MD at [facility] Left: Shoulder [employer] 06/03/2024 AR-2922BC / / [id number] [employer] [place] Suture 2.4mm Pushlock Biocomposite 11.3mm 1 Fiberwire Ar-[id number] - [id number] Implanted:Qty: 1 on 12/11/2022 by Drew Briscoe MD at [facility] Left: Shoulder [employer] 06/03/2024 AR-2922BC / / [id number] Procedures Procedure Name Priority Date/Time Associated Diagnosis Comments EGFR Routine 04/12/2024 9:04 AM DIETARY SERVICES DIRECTOR Well adult exam DIFFERENTIAL AUTO Routine 04/12/2024 9:0 4 AM DIETARY SERVICES DIRECTOR Well adult exam TOTAL TESTOSTERONE Routine 04/12/2024 9: 04 AM DIETARY SERVICES DIRECTOR Low libido TSH Routine 04/12/2024 9:04 AM DIETARY SERVICES DIRECTOR Screening, lipid Low libido LIPID PANEL Routine 04/12/2024 9:04 AM DIETARY SERVICES DIRECTOR Screening for thyroid disorder COMPREHENSIVE METABOLIC PANEL Routine 04/12/2024 9:04 AM DIETARY SERVICES DIRECTOR Well adult exam CBC WITH AUTO DIFFERENTIAL Routine 04/12/2024 9:04 AM DIETARY SERVICES DIRECTOR Well adult exam HEPATITIS B SURFACE ANTIBODY (IMMUNE STATUS) Routine 04/12/2024 9:04 AM DIETARY SERVICES DIRECTOR Need for hepatitis B screening test HEPATITIS C ANTIBODY Routine 08/11/2023 10:56 AM CDT Encounter for hepatitis C screening test for low risk patient from Last 3 Months or Most Recently Relevant to Health Maintenance Results * eGFR (04/12/2024 9:04 AM DIETARY SERVICES DIRECTOR) eGFR 79 >=60 mL/min/1. 73 m2 Comment: [...] last reviewed 2021. Blood 04/12/2024 9:04 AM DIETARY SERVICES DIRECTOR 04/12/2024 3:47 PM DIETARY SERVICES DIRECTOR us Deon Coronel MD LAB BLOOD ORDERABLES Final Result [facility] [address] Department [place] [address] * Differential, auto (04/12/2024 9:04 AM DIETARY SERVICES DIRECTOR) Pathologist [facility] Neutrophil abs 3.6 1.5 - 6.5 K/cumm Imm gran abs 0.0 0.0 - 0.1 K/cumm [facility] Lymphocyte abs 2.9 0.8 - 3.3 K/cumm [facility] Monocyte abs 0.6 0.2 - 0.8 K/cumm [facility] Eosinophil abs 0.1 0.0 - 0.5 K/cumm [facility] Basophil abs 0.0 0.0 - 0.1 K/cumm [facility] Neutrophil pct 49.8 % [facility] Comment: Interpretive Data Percent cell count reference ranges are not reported, since discordance with absolute values may lead to misinterpretation of CBC data. Current Interpretive Data was last revised on 2017. Imm gran pct 0.3 % [facility] Comment: Interpretive Data Percent cell count reference ranges are not reported, since discordance with absolute values may lead to misinterpretation of CBC data. Current Interpretive Data was last revised on 2017. Lymphocyte pct 40.4 % [facility] Comment: Interpretive Data Percent cell count reference ranges are not reported, since discordance with absolute values may lead to misinterpretation of CBC data. Current Interpretive Data was last revised on 2017. Monocyte pct 7.8 % [facility] Comment: Interpretive Data Percent cell count reference ranges are not reported, since discordance with absolute values may lead to misinterpretation of CBC data. Current Interpretive Data was last revised on 2017. Eosinophil pct 1.2 % [facility] Comment: Interpretive Data Percent cell count reference ranges are not reported, since discordance with absolute values may lead to misinterpretation of CBC data. Current Interpretive Data was last revised on 2017. Basophil pct 0.5 % [facility] Comment: Interpretive Data Percent cell count reference ranges are not reported, since discordance with absolute values may lead to misinterpretation of CBC data. Current Interpretive Data was last revised on 2017. Blood 04/12/2024 9:04 AM DIETARY SERVICES DIRECTOR 04/12/2024 3:33 PM DIETARY SERVICES DIRECTOR us Deon Coronel MD LAB BLOOD ORDERABLES Final Result [facility] [address] Department [place] [address] * (ABNORMAL) CBC with auto differential (04/12/2024 9:04 AM DIETARY SERVICES DIRECTOR) WBC 7.3 3.8 - 9.9 K/cumm Hgb 15.6 13.0 - 17.5 g/dL [facility] Hct 49.4 38.9 - 50.3 % [facility] Plt 250 150 - 400 K/cumm [facility] MPV 8.4(L) 9.1 - 12.3 fL [facility] RBC 5.42 4.30 - 5.80 M/cumm [facility] MCV 91.1 81.3 - 96.4 fL [facility] MCH 28.8 27.1 - 33.3 pg [facility] MCHC 31.6(L) 32.3 - 35.7 g/dL [facility] RDW CV 12.1 11.1 - 14.9 % [facility] RDW SD 40.4 35.7 - 48.1 fL [facility] NRBC abs 0.00 0.00 - 0.01 K/cumm [facility] Blood 04/12/2024 9:04 AM DIETARY SERVICES DIRECTOR 04/12/2024 3:33 PM DIETARY SERVICES DIRECTOR Deon Coronel MD LAB BLOOD ORDERABLES Final Result [facility] [address] [employer] [facility] [employer] [facility] Department of Laboratories [place] [phone] * Hepatitis B surface antibody (immune status) Blood (04/12/2024 9:04 AM DIETARY SERVICES DIRECTOR) HBsAb (immune status) Reactive Comment: Interpretive Data [...] HBsAb (immune status) index 12.6 mIUnits/m L [facility] Blood 04/12/2024 9:04 AM DIETARY SERVICES DIRECTOR 04/12/2024 3:33 PM DIETARY SERVICES DIRECTOR Deon Coronel MD LAB MICROBIOLOGY - GENERAL ORDERABLES Final Result Performing Organization Address [facility] Co de Phone Number [facility] [address] [address] [address] [facility] [place] [address] * TSH (04/12/2024 9:04 AM DIETARY SERVICES DIRECTOR) Thyroid Stimulating Hormone 3.84 0.30 - 4.20 mcIUnit/mL Blood 04/12/2024 9:04 AM DIETARY SERVICES DIRECTOR 04/12/2024 3:33 PM DIETARY SERVICES DIRECTOR Deon Coronel MD LAB BLOOD ORDERABLES Final Result Performing Organization Address [facility] de Phone Number [facility] [address] Department [place] [address] * Total testosterone (04/12/2024 9:04 AM DIETARY SERVICES DIRECTOR) Testosterone 304 249 - 836 ng/dL Blood 04/12/2024 9:04 AM DIETARY SERVICES DIRECTOR 04/12/2024 3:33 PM DIETARY SERVICES DIRECTOR Deon Coronel MD LAB BLOOD ORDERABLES Final Result Performing Organization Address [facility] de Phone Number [facility] [address] Department [place] [address] * Lipid panel (04/12/2024 9:04 AM DIETARY SERVICES DIRECTOR) Cholesterol 168 30 - 199 mg/dL Comment: [...] 3 [facility] Blood 04/12/2024 9:04 AM DIETARY SERVICES DIRECTOR 04/12/2024 3:33 PM DIETARY SERVICES DIRECTOR us Deon Coronel MD LAB BLOOD ORDERABLES Final Result [facility] Department [place] [address] * Comprehensive metabolic panel (04/12/2024 9:04 AM DIETARY SERVICES DIRECTOR) Sodium 141 135 - 145 mmol/L Potassium, [...] Units/L [facility] Blood 04/12/2024 9:04 AM DIETARY SERVICES DIRECTOR 04/12/2024 3:33 PM DIETARY SERVICES DIRECTOR us Deon Coronel MD LAB BLOOD ORDERABLES Final Result [facility] Department [place] [address] * Hepatitis C antibody Blood (08/11/2023 10:56 [...] - Final Performing Organization Address City/State/ZIP [place] Phone Number [facility] [address] [address] Department [place] [address] from Last 3 Months or Most Recently Relevant to Health Maintenance Insurance [employer] SIG [id number] [employer] [place] [id number] [place] [address] [employer] SIG [id number] Care Teams Research Associate Relationship Specialty Start Date End Date Deon Coronel MD PCP - General Family Medicine 01/30/21 Shanae Aburto PA [address] [place] [address] [place] [address] Clerk Orthopedic Surgery 12/11/22
--- OUTSIDE RECORDS SUMMARY | 2024-05-04 21:55 | XMS_ITS | Referral Summary ---
Author Organization [facility] Address [address] [place] [id number] Care Team Providers Care Lubrication Technician Name Role Phone Deon Coronel MD Primary Care Provider [phone] Shanae Aburto Unavailable [phone] Encounters Date Type Department Care Team Description 04/12/2024 9:04 AM WRAP KNITTING MACHINE OPERATOR - 04/12/2024 11:59 PM WRAP KNITTING MACHINE OPER[place] [address] Well adult exam; Screening for thyroid disorder; Screening, lipid; Low libido; Need for hepatitis B screening test Discharge Disposition: Discharge to home or self care 04/12/2024 9:00 AM WRAP KNITTING MACHINE OPERATOR Lab [facility] Outpatient Lab at [address] [phone] 04/12/2024 8:00 AM WRAP KNITTING MACHINE OPERATOR Office Visit [facility] Primary Care at [address] [phone] Deon Coronel MD Well adult exam (Primary [...] 1 tablet (10 mg total) by mouth ophthalmic medical technologist before breakfast 30 tablet 024 Active naproxen (NAPROSYN) 500 mg tablet TAKE 1 TABLET BY MOUTH TWICE A DAY WITH MEALS 60 tablet 024 2024 Discontinued Active Problems Problem Noted Date Diagnosed Date Low libido 04/12/2024 Chest pain 08/11/2023 Bankart lesion of left shoulder 11/25/2022 Well adult exam 03/02/2022 Assessment & Plan (04/12/2024 8:47 AM WRAP KNITTING MACHINE OPERATOR): A(n) yearly well adult visit has [...] year Assessment & Plan (04/14/2023 11:34 AM WRAP KNITTING MACHINE OPERATOR): A(n) yearly well adult visit has [...] year Assessment & Plan (03/02/2022 2:28 PM WRAP KNITTING MACHINE OPERATOR): A(n) yearly well adult visit has [...] 05/27/2021 Assessment & Plan (05/27/2021 12:55 PM WRAP KNITTING MACHINE OPERATOR): anusol HC x 2 weeks Referral [...] Master's degree (e.g., MA, MS, Srinath, MEd, QUIRK SANDER, ANDRESSA) 01/30/2021 Sex and Gender Information Value Date Recorded Sex Assigned at Not on file Legal Sex Male 5:49 PM WRAP KNITTING MACHINE OPERATOR Gender Identity Not on file Sexual Orientation Straight 01/23/2021 11 :47 AM CDT 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 Last Filed Vital Signs Vital Sign Reading Time Taken Comments Blood Pressure 120/86 04/12/2024 8:13 AM WRAP KNITTING MACHINE OPERATOR Pulse 75 04/12/2024 8:13 AM WRAP KNITTING MACHINE OPERATOR Temperature 36.6 ??C (97.8 ??F) 04/12/2024 8:13 AM CS T Respiratory Rate 18 08/11/2023 10:02 AM CDT Oxygen Saturation 95% 04/12/2024 8:13 AM WRAP KNITTING MACHINE OPERATOR Inhaled Oxygen Concentration - - Weight 102.1 kg (225 lb) 04/12/2024 8:13 AM WRAP KNITTING MACHINE OPERATOR Height 185.4 cm (6' 1 ) 04/12/2024 8:13 AM WRAP KNITTING MACHINE OPERATOR Body Mass Index 29.69 04/12/2024 8:13 AM WRAP KNITTING MACHINE OPERATOR Plan of Treatment Not on file Medical Devices Implanted Type Area Licensed Nuclear Control Room Operator Device Identifier Shelf Expiration Date Model / Serial / Lot [employer] [place] Suture 2.4mm Pushlock Biocomposite 11.3mm 1 Fiberwire [id number] - [id number] Implanted:Qty: 1 on 12/11/2022 by Drew Briscoe MD at [facility] Left: Shoulder [employer] 06/03/2024 AR-2922BC / / [id number] [employer] [place] Suture 2.4mm Pushlock Biocomposite 11.3mm 1 Fiberwire Ar-2922bc - [id number] Implanted:Qty: 1 on 12/11/2022 by Drew Briscoe MD at [facility] Left: Shoulder [employer] 06/03/2024 AR-2922BC / / [id number] [employer] [place] Suture 2.4mm Pushlock Biocomposite 11.3mm 1 Fiberwire Ar-2922bc - [id number] Implanted:Qty: 1 on 12/11/2022 by Drew Briscoe MD at [facility] Left: Shoulder [employer] 05/06/2024 AR-2922BC / / [id number] [employer] Fiberlink Arthrex Suturetape 1.3mm Tape Suture Nonabsorbable Ar-7535 - [id number] Implanted:Qty: 5 on 12/11/2022 by Drew Briscoe MD at [facility] Left: Shoulder [employer] AR-7535 / / [employer] [place] Suture 2.4mm Pushlock Biocomposite 11.3mm 1 Fiberwire Ar-2922bc - [id number] Implanted:Qty: 1 on 12/11/2022 by Drew Briscoe MD at [facility] Left: Shoulder [employer] 06/03/2024 AR-2922BC / / [id number] [employer] [place] Suture 2.4mm Pushlock Biocomposite 11.3mm 1 Fiberwire Ar-2922bc - [id number] Implanted:Qty: 1 on 12/11/2022 by Drew Briscoe MD at [facility] Left: Shoulder [employer] 06/03/2024 AR-2922BC / / [id number] Procedures Procedure Name Priority Date/Time Associated Diagnosis Comments EGFR Routine 04/12/2024 9:04 AM WRAP KNITTING MACHINE OPERATOR Well adult exam DIFFERENTIAL AUTO Routine 04/12/2024 9:0 4 AM WRAP KNITTING MACHINE OPERATOR Well adult exam TOTAL TESTOSTERONE Routine 04/12/2024 9: 04 AM WRAP KNITTING MACHINE OPERATOR Low libido TSH Routine 04/12/2024 9:04 AM WRAP KNITTING MACHINE OPERATOR Screening, lipid Low libido LIPID PANEL Routine 04/12/2024 9:04 AM WRAP KNITTING MACHINE OPERATOR Screening for thyroid disorder COMPREHENSIVE METABOLIC PANEL Routine 04/12/2024 9:04 AM WRAP KNITTING MACHINE OPERATOR Well adult exam CBC WITH AUTO DIFFERENTIAL Routine 04/12/2024 9:04 AM WRAP KNITTING MACHINE OPERATOR Well adult exam HEPATITIS B SURFACE ANTIBODY (IMMUNE STATUS) Routine 04/12/2024 9:04 AM WRAP KNITTING MACHINE OPERATOR Need for hepatitis B screening test HEPATITIS C ANTIBODY Routine 08/11/2023 10:56 AM CDT Encounter for hepatitis C screening test for low risk patient from Last 3 Months or Most Recently Relevant to Health Maintenance Results * eGFR (04/12/2024 9:04 AM WRAP KNITTING MACHINE OPERATOR) eGFR 79 >=60 mL/min/1. 73 m2 [...] last reviewed 2021. Blood 04/12/2024 9:04 AM WRAP KNITTING MACHINE OPERATOR 04/12/2024 3:47 PM WRAP KNITTING MACHINE OPERATOR Deon Coronel MD LAB BLOOD ORDERABLES Final Result [facility] [address] Department of [place] [address] * Differential, auto (04/12/2024 9:04 AM WRAP KNITTING MACHINE OPERATOR) Neutrophil abs 3.6 1.5 - 6.5 K/cumm Imm gran abs 0.0 0.0 - 0.1 K/cumm [facility] Lymphocyte abs 2.9 0.8 - 3.3 K/cumm [facility] Monocyte abs 0.6 0.2 - 0.8 K/cumm [facility] Eosinophil abs 0.1 0.0 - 0.5 K/cumm [facility] Basophil abs 0.0 0.0 - 0.1 K/cumm [facility] Neutrophil pct 49.8 % [facility] Comment: Interpretive Data Percent cell count reference ranges are not reported, since discordance with absolute values may lead to misinterpretation of CBC data. Current Interpretive Data was last revised on 2017. Imm gran pct 0.3 % [facility] Comment: Interpretive Data Percent cell count reference ranges are not reported, since discordance with absolute values may lead to misinterpretation of CBC data. Current Interpretive Data was last revised on 2017. Lymphocyte pct 40.4 % [facility] Comment: Interpretive Data Percent cell count reference ranges are not reported, since discordance with absolute values may lead to misinterpretation of CBC data. Current Interpretive Data was last revised on 2017. Monocyte pct 7.8 % [facility] Comment: Interpretive Data Percent cell count reference ranges are not reported, since discordance with absolute values may lead to misinterpretation of CBC data. Current Interpretive Data was last revised on 2017. Eosinophil pct 1.2 % [facility] Comment: Interpretive Data Percent cell count reference ranges are not reported, since discordance with absolute values may lead to misinterpretation of CBC data. Current Interpretive Data was last revised on 2017. Basophil pct 0.5 % [facility] Comment: Interpretive Data Percent cell count reference ranges are not reported, since discordance with absolute values may lead to misinterpretation of CBC data. Current Interpretive Data was last revised on 2017. Blood 04/12/2024 9:04 AM WRAP KNITTING MACHINE OPERATOR 04/12/2024 3:33 PM WRAP KNITTING MACHINE OPERATOR us Deon Coronel MD LAB BLOOD ORDERABLES Final Result [facility] [address] [place] [address] * (ABNORMAL) CBC with auto differential (04/12/2024 9:04 AM WRAP KNITTING MACHINE OPERATOR) WBC 7.3 3.8 - 9.9 K/cumm Hgb 15.6 13.0 - 17.5 g/dL [facility] Hct 49.4 38.9 - 50.3 % [facility] Plt 250 150 - 400 K/cumm [facility] MPV 8.4(L) 9.1 - 12.3 fL [facility] RBC 5.42 4.30 - 5.80 M/cumm [facility] MCV 91.1 81.3 - 96.4 fL [facility] MCH 28.8 27.1 - 33.3 pg [facility] MCHC 31.6(L) 32.3 - 35.7 g/dL [facility] RDW CV 12.1 11.1 - 14.9 % [facility] RDW SD 40.4 35.7 - 48.1 fL [facility] NRBC abs 0.00 0.00 - 0.01 K/cumm [facility] Blood 04/12/2024 9:04 AM WRAP KNITTING MACHINE OPERATOR 04/12/2024 3:33 PM WRAP KNITTING MACHINE OPERATOR Deon Coronel MD LAB BLOOD ORDERABLES Final Result [facility] [address] [facility] Department [place] [address] * Hepatitis B surface antibody (immune status) Blood (04/12/2024 9:04 AM WRAP KNITTING MACHINE OPERATOR) Pathologist [facility] HBsAb (immune status) Reactive Comment: Interpretive Data [...] HBsAb (immune status) index 12.6 mIUnits/m L [facility] Blood 04/12/2024 9:04 AM WRAP KNITTING MACHINE OPERATOR 04/12/2024 3:33 PM WRAP KNITTING MACHINE OPERATOR Deon Coronel MD LAB MICROBIOLOGY - GENERAL ORDERABLES Final Result Performing Organization Address [facility] Co de Phone Number [facility] [address] [facility] [place] [address] * TSH (04/12/2024 9:04 AM WRAP KNITTING MACHINE OPERATOR) Thyroid Stimulating Hormone 3.84 0.30 - 4.20 mcIUnit/mL Blood 04/12/2024 9:04 AM WRAP KNITTING MACHINE OPERATOR 04/12/2024 3:33 PM WRAP KNITTING MACHINE OPERATOR Deon Coronel MD LAB BLOOD ORDERABLES Final Result Performing Organization Address [facility] Phone Number [facility] [address] [place] [address] * Total testosterone (04/12/2024 9:04 AM WRAP KNITTING MACHINE OPERATOR) Testosterone 304 249 - 836 ng/dL Blood 04/12/2024 9:04 AM WRAP KNITTING MACHINE OPERATOR 04/12/2024 3:33 PM WRAP KNITTING MACHINE OPERATOR Deon Coronel MD LAB BLOOD ORDERABLES Final Result Performing Organization Address [facility] Phone Number [facility] [address] [address] [place] [address] * Lipid panel (04/12/2024 9:04 AM WRAP KNITTING MACHINE OPERATOR) Cholesterol 168 30 - 199 mg/dL [...] 3 [facility] Blood 04/12/2024 9:04 AM WRAP KNITTING MACHINE OPERATOR 04/12/2024 3:33 PM WRAP KNITTING MACHINE OPERATOR us Deon Coronel MD LAB BLOOD ORDERABLES Final Result [facility] [address] [place] [address] * Comprehensive metabolic panel (04/12/2024 9:04 AM WRAP KNITTING MACHINE OPERATOR) Sodium 141 135 - 145 mmol/L [...] Units/L [facility] Blood 04/12/2024 9:04 AM WRAP KNITTING MACHINE OPERATOR 04/12/2024 3:33 PM WRAP KNITTING MACHINE OPERATOR us Deon Coronel MD LAB BLOOD ORDERABLES Final Result [facility] [address] [place] [address] * Hepatitis C antibody Blood (08/11/2023 10:56 [...] - Final Performing Organization Address City/State/ZIP Co mi Phone Number [facility] [address] [address] [place] [address] from Last 3 Months or Most Recently Relevant to Health Maintenance Insurance [employer] SIG [id number] [place] [address] AET[employer] SIG [id number] Care Teams Lubrication Technician Relationship Specialty Start Date End Date Deon Coronel MD PCP - General Family Medicine 01/30/21 Shanae Aburto PA [address] [place] [address] [place] [address] Physician Hog Man Orthopedic Surgery 12/11/22
[2024-05-04 22:59] VITALS: BP 128/89; PULSE 70; RESP 18; O2SAT 94
== END 2024-05-04 22:59 | disposition home or self-care (01) ==
PROVIDERS: Emergency Provider Internal Medicine Critical Care Medicine; PCP Family Medicine
DX: H53.2 Diplopia (principal)
CPT/HCPCS: 70450; 99284

== ENCOUNTER 2024-12-03 10:14 | Emergency (ER) | payer OTHER, SELFPAY ==
--- OUTSIDE RECORDS SUMMARY | 2018-02-03 08:00 | XMS_ITS | Continuity of Care Document ---
Author Organization [facility] Address [address] [place] [address] Phone Care Team Providers Care Pre Certification Specialist Name Role Phone Daniel PT,MPT,ATC, Bakari Unavailable Unavai lable Procedures Procedure Date Therapeutic Activities Therapeutic Exercise Therapeutic Activities Neuromuscular Re-Ed Manual Therapy VGA-Individual Onsite Eval Therapeutic Exercise Therapeutic Activities Neuromuscular Re-Ed Manual Therapy Therapeutic Exercise Therapeutic Activities Manual Therapy Therapeutic Exercise Therapeutic Activities Neuromuscular Re-Ed Manual Therapy Therapeutic Exercise Therapeutic Activities Neuromuscular Re-Ed Manual Therapy PT Evaluation Moderate Complexity Therapeutic Exercise Neuromuscular Re-Ed Manual Therapy Advance Directives Directive Yes / No Effective Date File Name No Information Encounters Encounter Description Practice Location Reason(s) For Visit Diagnoses Date Provider Providers Copied on Encounter [facility], [place], [place], [id number], [place] tel:[phone] [place] Pain in right lower leg DANE May, [place]. [facility], [place], [place], [id number], tel:[phone] [place] Pain in right lower leg DANE [place], [place]. [facility], [place], [place], [id number], tel:[phone] [place] Pain in right lower leg Daniel Avendano [place], [place]. [facility], [place], [place], [id number], tel:[phone] [place] Pain in right lower leg Daniel Avendano , [place], [place]. [facility], [place], [place], [id number], tel:[phone] [place] Pain in right lower leg Anjelica Brand. . [facility], [place], [place], [id number], tel:[phone] [place] Pain in right lower leg Daniel Avendano [place], [place]. [facility], [place], [place], [id number], tel:[phone] [place] Pain in right lower leg Daniel Avendano [place], [place]. Family History Family Member Type Diagnosis Age At Onset No Information Payers Payer name Insurance type Covered constitution party ID Reagan meyers(lianne Esposito [id number] Social History Type Description Quantity Date Captured Comments Sex Male Smoking Status No Information Chief Complaint And Reason For Visit No Information Reason For Referral Reason For Referral No Information History Of Present Illness Encounter Date Complaint History Of Prese nt Illness No Information Functional Status Date Functional Assessmen t No Information Instructions Date Instruction Additional Infor mation No Information Assessments Type Assessment Date No Information Patient Care Teams Name Effective Dates (start - stop) Status Members No Information
--- OUTSIDE RECORDS SUMMARY | 2018-02-03 08:00 | XMS_ITS | Continuity of Care Document ---
Author Organization [facility] Address [address] [place] [address] Phone Care Team Providers Care Liquified Natural Gas Specialist Name Role Phone Daniel PT,MPT,ATC, Bakari [...] Diagnoses Date Provider Providers Copied on Encounter [facility], [place], [place], [id number], [place] tel:[phone] [place] Pain in right lower leg DANE [place], [place]. [facility], [place], [place], [id number], tel:[phone] [place] Pain in right lower leg DANE May, [place]. [facility], [place], [place], [id number], tel:[phone] [place] Pain in right lower leg Daniel Avendano [place], [place]. [facility], [place], [place], [id number], tel:[phone] [place] Pain in right lower leg Daniel Avendano , [place], [place]. [facility], [place], [place], [id number], tel:[phone] [place] Pain in right lower leg Anjelica Brand. . [facility], [place], [place], [id number], tel:[phone] [place] Pain in right lower leg Daniel Avendano [place], [place]. [facility], [place], [place], [id number], tel:[phone] [place] Pain in right lower leg Daniel Avendano [place], [place]. Family History Family Member Type Diagnosis Age At Onset No Information Payers Payer name Insurance type Covered constitution party ID Reagan meyers(lianne Esposito [id number] Social History Type Description Quantity Date Captured [...]
--- NOTE | ~2024-12-03 | CT_ITS ---
EXAMINATION: CT brain wo con COMPARISON: None HISTORY: blurred/double vision onset this AM TECHNIQUE: Axial images were obtained through the brain without IV contrast. CT scan performed using dose optimization techniques including the following automated exposure control; adjustment of mA and/or kV; use of iterative reconstruction technique. Automatic exposure control was used to reduce radiation dose. Permanent radiation dose record is archived to PACS. FINDINGS: No acute infarct or parenchymal hemorrhage. No abnormal mass or mass effect. No midline shift. No extra-axial fluid collections. No hydrocephalus. . Mastoid air cells unremarkable. Sinuses and orbits unremarkable. No acute fracture. No significant facial or scalp soft tissue swelling evident. No radiopaque foreign body is seen. Impression: 1.No acute intracranial abnormality. Reviewed, dictated and finalized at location A. Impression: 1.No acute intracranial abnormality.
[2024-12-03 10:15] VITALS: BP 142/95; PULSE 67; RESP 16; TEMP 36.8; O2SAT 97
--- NOTE | 2024-12-03 10:39 | PC.NURSE ---
Patient taken down to radiology
--- OUTSIDE RECORDS SUMMARY | 2024-12-03 10:42 | XMS_ITS | Clinical Summary ---
Author Organization [facility] Address [address] [place] [phone] Care Team Providers Care Grill Chef Name Role Phone Deon Coronel MD Primary Care Provider [phone] Shanae Aburto Unavailable [phone] Allergies Active Allergy Reactions Criticality Noted Date Comments Wasp Venom Swelling Medium 12/26/2021 Medications multivitamin capsule Take 1 capsule by mouth daily Active EPINEPHrine 0.3 mg/0.3 mL auto-injection syringeIndications :Anaphylaxis Inject 0.3 mL (0.3 mg total) into the muscle as instructed as needed for anaphylaxis Call 911 after use. 2 each 10/25/19 22 Active ondansetron ODT (ZOFRAN-ODT) 4 mg disintegrating tablet Take 1 tablet (4 mg total) by mouth every 8 (eight) hours as needed for nausea or vomiting 03/09/20 23 Active dextroamphetamine sulfate (DEXTROSTAT) 10 mg tabletIndications: Attention-Deficit Hyperactivity Disorder Take 1 tablet (10 mg total) by mouth cardiopulmonary supervisor before breakfast 30 tablet 10/18/19 25 Active Active Problems Problem Noted Date Diagnosed Date Low libido 04/12/2024 Chest pain 08/11/2023 Bankart lesion of left shoulder 11/25/2022 Well adult exam 03/02/2022 Assessment & Plan (04/12/2024 8:47 AM LINE REPAIRER TOWER): A(n) yearly well adult visit has been performed today. Karina Petty is not up to date on [...] year Assessment & Plan (04/14/2023 11:34 AM LINE REPAIRER TOWER): A(n) yearly well adult visit has been performed today. Karina Petty is not up to date on [...] year Assessment & Plan (03/02/2022 2:28 PM LINE REPAIRER TOWER): A(n) yearly well adult visit has been performed today. Karina Petty is up to date on screening [...] 05/27/2021 Assessment & Plan (05/27/2021 12:55 PM LINE REPAIRER TOWER): anusol HC x 2 weeks Referral to general surgeon entered Docusate (OTC) trial as well Try probiotic (Align, Culturelle, etc) x 2 weeks as well Medial epicondylitis of right elbow 02/02/2021 Attention deficit hyperactiv ity disorder (ADHD), combined type 01/30/2021 Overview (01/30/2021): Diagnosed in 2018 Migraine with aura 11/23/2013 Overview (07/11/2016): Migraine w/ aura Immunizations Immunization Administration Dates Next Due Influenza, Quadrivalent, Sara [...] Master's degree (e.g., MA, MS, Srinath, MEd, PLANT PATHOLOGY TEACHER, ANDRESSA) 01/30/2021 Sex and Gender Information Value Date Recorded Sex Assigned at Not on file Legal Sex Male 5:49 PM LINE REPAIRER TOWER Gender Identity Not on file Sexual Orientation Straight 01/23/2021 11 :47 AM CDT 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 Obstetrics History Last Filed Vital Signs Vital Sign Reading Time Taken Comments Blood Pressure 120/86 04/12/2024 8:13 AM LINE REPAIRER TOWER Pulse 75 04/12/2024 8:13 AM LINE REPAIRER TOWER Temperature 36.6 C (97.8 F) 04/12/2024 8:13 AM LINE REPAIRER TOWER Respiratory Rate 18 08/11/2023 10:02 AM CDT Oxygen Saturation 95% 04/12/2024 8:13 AM LINE REPAIRER TOWER Inhaled Oxygen Concentration - - Weight 102.1 kg (225 lb) 04/12/2024 8:13 AM LINE REPAIRER TOWER Height 185.4 cm (6' 1) 04/12/2024 8:13 AM LINE REPAIRER TOWER Body Mass Index 29.69 04/12/2024 8:13 AM LINE REPAIRER TOWER Plan of Treatment Health Maintenance Due Date Last Done Comments Hepatitis B Screening 2000 HPV Vaccines (1 - 3-dose SCDM series) 2009 Influenza Vaccine (#1) 2024 , 01/07/2020, 11/04/2013, Additional history exists DTaP/Tdap/Td Vaccine (3 - Td or Tdap) 04/06/2025 11/04/2013, 10/31/2013 Postponed from 11/05/2023 (Patient declined, but will receive in the future) Depression Screening 04/12/2025 04/12/2024, 08/11/2023, 04/14/2023, Additional history exists Regular Well Visit/Exam 18-64 04/12/2025 04/12/2024, 04/14/2023, 02/26/2022, Additional history exists Covid-19 Vaccine Discontinued 04/18/2021, , 06/29/2020 Hepatitis C Screening Completed 08/11/2023 Pneumococcal vaccine <65 Aged Out No longer eligible based on patient's age to complete this topic Varicella Vaccines Discontinued Medical Devices Implanted Type Area Inside Sales Assistant Device Identifier Shelf Expiration Date Model / Serial / Lot [employer] [place] Suture 2.4mm Pushlock Biocomposite 11.3mm 1 Fiberwire Ar-2922bc - [id number] Implanted:Qty: 1 on 12/11/2022 by Drew Briscoe MD at [facility] Left: Shoulder [employer] 06/03/2024 AR-2922BC / / [id number] [employer] [place] Suture 2.4mm Pushlock Biocomposite 11.3mm 1 Fiberwire Ar-2922bc - [id number] Implanted:Qty: 1 on 12/11/2022 by Drew Briscoe MD at [facility] Left: Shoulder [employer] 06/03/2024 AR-2922BC / / [id number] [employer] [place] Suture 2.4mm Pushlock Biocomposite 11.3mm 1 Fiberwire Ar-2922bc - [id number] Implanted:Qty: 1 on 12/11/2022 by Drew Briscoe MD at [facility] Left: Shoulder [employer] 05/06/2024 AR-2922BC / / [id number] [employer] Fiberlink Arthrex Suturetape 1.3mm Tape Suture Nonabsorbable Ar-7535 - [id number] Implanted:Qty: 5 on 12/11/2022 by Drew Briscoe MD at [facility] Left: Shoulder [employer] AR-7535 / / [employer] [place] Suture 2.4mm Pushlock Biocomposite 11.3mm 1 Fiberwire Ar-2922bc - [id number] Implanted:Qty: 1 on 12/11/2022 by Drew Briscoe MD at [facility] Left: Shoulder [employer] 06/03/2024 AR-2922BC / / [id number] [employer] [place] Suture 2.4mm Pushlock Biocomposite 11.3mm 1 Fiberwire Ar-2922bc - [id number] Implanted:Qty: 1 on 12/11/2022 by Drew Briscoe MD at [facility] Left: Shoulder [employer] 06/03/2024 AR-2922BC / / [id number] Procedures Procedure Name Priority Date/Time Associated Diagnosis Comments HEPATITIS C ANTIBODY Routine 08/11/2023 10:56 AM CDT Encounter for hepatitis C screening test for low risk patient from Last 3 Months or Most Recently Relevant to Health Maintenance Results * Hepatitis C antibody Blood (08/11/2023 10:56 AM CDT) Hep C Ab Nonreactive Nonreactive Comment: Interpretive Data Nonreactive: Antibodies to HCV not detected. Does NOT exclude the possibility of recent exposure to HCV. Equivocal: Equivocal for HCV antibodies. Supplemental molecular testing will be automatically performed to determine infection status in accordance with current CDC screening recommendations. Reactive: Positive for HCV antibodies. This may represent current or past HCV infection. Supplemental molecular testing will be automatically performed to determine current infection status in accordance with current CDC screening recommendations. Interpretive data was last revised on 2019. Blood 08/11/2023 10:5 6 AM CDT 08/11/2023 7:26 PM CDT Deon Coronel MD LAB MICROBIOLOGY - GENERAL ORDERABLES Edited Result - Final [facility] [address] [address] [place] [address] from Last 3 Months or Most Recently Relevant to Health Maintenance Insurance A[employer] SIG [id number] [place] [address] AETNA SIG [id number] Care Teams Grill Chef Relationship Specialty Start Date End Date Deon Coronel MD PCP - General Family Medicine 01/30/21 Shanae Aburto PA [address] [place] [address] [place] [address] Physician Child Welfare Director Orthopedic Surgery 12/11/22
[2024-12-03] MEDS: KETOROLAC (*BKC) 60 MG/2 ML VIAL IM (11:02)
[2024-12-03] MEDS: ONDANSETRON HCL ODT 4 MG TABLET PO (11:02)
--- NOTE | 2024-12-03 11:04 | ED.EYEPROB ---
HPI - Eye Problem General Chief complaint: Eye Problems Stated complaint: migraine Time Seen by Provider: 12/03/24 10:22 Source: patient and family Mode of arrival: ambulatory Limitations: no limitations History of Present Illness HPI Narrative: this is a 44-year-old male with a history of migraine since childhood and has had issues with ocular migraines in the past, currently presents with some diplopia with no headaches no eye pain or pressure does have nausea with no vomiting no neurological deficits no fever chills no neck pain or neck stiffness no abdominal pain no diarrhea constipation. 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 Migraine ADHD Surgical History Surgical History Hx of LASIK Family History Family History Father In good health Mother Breast cancer Bone cancer Skin cancer Heart disease Social History Social History Smoking status: Never smoker Second hand tobacco smoke exposure: No Alcohol intake: never Substance use: never Substance use type: does not use Living arrangements: with family Gender identity (if verbalized by the patient): Male Sexual Orientation (if Verbalized by the Patient): Straight or Heterosexual Spiritual care concerns: No Exam Const: General: healthy appearing Nutritional Appearance: well nourished Orientation/consciousness: patient oriented x3 Limitations: no limitations HENMT: Head: normal to inspection Eyes: Conjunctivae: conjunctivae normal Pupils: Equal, round and reactive pupils present EOM: EOMs intact bilaterally Direct Ophthalmoscopy: no photophobia Neck: Neck: normal visual inspection, no lymphadenopathy and no meningeal signs Chest: Chest palpation & inspection: normal inspection of the chest Resp: Effort & Inspection: normal respiratory effort Auscultation: clear to auscultation bilaterally Cardio: Rate: regular rate Rhythm: regular rhythm GI: GI Palp: Yes Soft to palpation Auscultation: normal bowel sounds Skin: General skin exam: normal color Rashes: no rashes Wounds: no wounds Neuro: General: patient oriented x3 and moves all extremities Extrem: General: normal to inspection and no clubbing, cyanosis or edema Course Course Emergency Course: Patient had CT scan of the brain which showed no acute abnormalities, IM Toradol 60mg given and ODT Zofran administered. Vital Signs Vital signs: Vital Signs Temperature 36.8 C 12/03/24 10:15 Pulse Rate 67 12/03/24 10:15 Respiratory Rate 16 12/03/24 10:15 Blood Pressure 142/95 H 12/03/24 10:15 Pulse Oximetry 97 12/03/24 10:15 Oxygen Delivery Room Air 12/03/24 10:15 Temperature 36.8 C 12/03/24 10:15 Pulse Rate 67 12/03/24 10:15 Respiratory Rate 16 12/03/24 10:15 Blood Pressure 142/95 H 12/03/24 10:15 Pulse Oximetry 97 12/03/24 10:15 Oxygen Delivery Room Air 12/03/24 10:15 Critical Care Time Critical Care Time Critical Care Time: No Discharge Plan Discharge Clinical Impression: Ocular migraine Patient Disposition: Home Condition: Stable Instructions: Antibiotic Form, Ocular Migraine (ED) Additional Instructions: advised patient to take medication as prescribed and to follow with Primary/neurology for further evaluation and treatment. also advised patient to take Tylenol or Motrin along with prescribed medication. Patient Language: Northern Irish Prescriptions: New verapamil 40 mg tablet 40 mg PO DAILY Qty: 20 0RF ondansetron 4 mg tablet,disintegrating 4 mg PO Q6H PRN (Reason: nausea and vomiting) Qty: 14 0RF Follow-up/Referrals: Homer,Deon Denton MD [Primary Care Provider, Unknown] Time of Disposition: 11:09
[2024-12-03 11:38] VITALS: BP 134/87; PULSE 68; RESP 18; TEMP 36.8; O2SAT 99
== END 2024-12-03 11:38 | disposition home or self-care (01) ==
PROVIDERS: Emergency Provider Emergency Medicine; PCP Family Medicine
DX: G43.809 Other migraine, not intractable, without status migrainosus (principal)
CPT/HCPCS: 70450; 96372; 96374; 99284; A9270; J1885

== ENCOUNTER 2025-02-13 08:09 | Emergency (ER) | payer BC, SELFPAY ==
[2025-02-13 08:15] VITALS: BP 128/88; PULSE 61; RESP 18; O2SAT 97
--- NOTE | 2025-02-13 08:15 | ED_ITS ---
HPI - URI/Sore Throat General Chief Complaint: Upper Respiratory Infection Stated Complaint: Sinus Infection Symptoms Time Seen by Provider: 02/13/25 08:20 Source: patient, RN notes reviewed and old records reviewed Mode of arrival: ambulatory Limitations: no limitations History of Present Illness HPI Narrative: 44 year old male presents to [facility] care with complaints of 3 weeks of sinus congestion drainage and sinus pressure with no known fever. He reports he has taken [id number] Advil sinus, Tylenol cold and flu, and has also taken Mucinex today. Patient denies any sore throat, any acute cough, or any ear pain. Patient reports that he has had some headache discomfort due to sinus pressure reports different than his migraines. MD elicited complaint: sore throat, rhinorrhea, nasal congestion and sinus pain Onset (ago): week(s) (2-3 Weeks) Pain scale (0-10): 5 Description of mucous: yellow Treatments prior to arrival: other ( Advil Sinus, Tylenol cold flu, Mucinex) Related Data Allergies Allergy/AdvReac Type Severity Reaction Status Date / Time No Known Allergies Allergy Unknown Verified 02/13/25 08:20 Review of Systems Review of Systems: CONSTITUTIONAL: Denies malaise, chills, sweats, or fever. EYES: Denies visual changes, redness, or discharge. ENT: Reports rhinorrhea, congestion, sinus pain, no otalgia and no sore throat. CARDIOVASCULAR: Denies chest pain, palpitations, or edema. RESPIRATORY: Reports no acute cough.? Denies dyspnea. GASTROINTESTINAL: Denies abdominal pain, nausea, vomiting, diarrhea SKIN: Denies rash or itching. MUSCULOSKELETAL: Denies myalgia. NEUROLOGIC: reports headache. 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 Migraine ADHD Surgical History Surgical History (Updated 02/13/25 @ 08:29 by Addis Garrison APRN) H/O shoulder surgery left labrum repair repair H/O vasectomy Hx of LASIK Family History Family History Father In good health Mother Breast cancer Bone cancer Skin cancer Heart disease Social History Social History Second hand tobacco smoke exposure: No Alcohol intake: never Substance use: never Substance use type: does not use Living arrangements: with family Gender identity (if verbalized by the patient): Male Sexual Orientation (if Verbalized by the Patient): Straight or Heterosexual Spiritual care concerns: No Comments At time of signature, agree with nursing past medical, surgical, social and family history. There is no relevant family history pertinent to the presenting complaint Exam Narrative: GENERAL: Well-appearing, well-nourished, and in no acute distress. HEAD: Normocephalic EYES: PERRLA, conjunctivae clear ENT: Nares clear, turbinates edematous and erythematous, clear to light yellow discharge. Mucous membranes moist. TM pearly heart with dull light reflex bilaterally; no tragal tenderness. Oropharynx erythematous without lesions. Tonsils not enlarged and without exudate, no drooling, no hoarseness, no trismus, uvula midline. NECK: Supple. No lymphadenopathy CHEST: Clear to auscultation, breath sounds equal. No wheezing, rhonchi, rales, or stridor. No respiratory distress, speaks in full sentences. rare cough, SaO2 97% on room air HEART: Regular rate and rhythm. No murmur heard. SKIN: Warm, dry, no rash. NEURO: Alert and oriented x3. PSYCH: Normal mood and affect Course Course Emergency Course: Patient is aware of diagnosis, understands and agrees to treatment plan.? Anticipatory guidance given.? Patient agrees to follow-up as directed and is aware of reasons to seek care at the emergency department. Portions of this record may have been created with voice recognition software Level of Care: Express Care Visit Vital Signs Vital signs: Vital Signs Pulse Rate 61 02/13/25 08:15 Respiratory Rate 18 02/13/25 08:15 Blood Pressure 128/88 02/13/25 08:15 Pulse Oximetry 97 02/13/25 08:15 Oxygen Delivery Room Air 02/13/25 08:15 Pulse Rate 61 02/13/25 08:15 Respiratory Rate 18 02/13/25 08:15 Blood Pressure 128/88 02/13/25 08:15 Pulse Oximetry 97 02/13/25 08:15 Oxygen Delivery Room Air 02/13/25 08:15 Reviewed MDM - URI/Sore Throat MDM Narrative Medical decision making narrative: Differential diagnosis considered: Cadet virus, strep pharyngitis, allergic rhinitis, upper respiratory tract infection, sinusitis, rhinosinusitis, nasopharyngitis. viral pharyngitis, otitis media, otitis externa, pneumonia, bronchitis, viral cough syndrome, viral syndrome, and influenza.? Exam findings show no acute concerns or changes; patient is non-toxic appearing and is in no distress.? Patient is appropriate for outpatient treatment and follow-up. Differential Diagnosis Differential diagnosis: Likely upper respiratory infection, sinusitis, viral infection and other ( allergic rhinitis) Medical Records Attestation: I reviewed the patient's medical records. Lab Data Attestation: I reviewed the patient's lab results. Critical Care Time Critical Care Time Critical Care Time: No Discharge Plan Discharge Clinical Impression: Sinusitis Qualifiers: Sinusitis location: pansinusitis Chronicity: acute Recurrence: non-recurrent Qualified Code(s): J01.40 - Acute pansinusitis, unspecified Patient Disposition: Home Condition: Stable Instructions: Antibiotic Form, Sinusitis (ED) Additional Instructions: Increase fluids especially juices and water Arsd-ced-jaxwjue cough and cold medicine of your choice for your symptoms Zyrtec Claritin or Kathryn daily per package instructions may take 1 dose of Sudafed plain in a.m. for congestion Tylenol or ibuprofen for any fever pain for package instructions heat to the face 20-30 minutes 4-6 times a day for pain Salt water gargles, throat lozenges or throat sprays as desired Antibiotic as directed--finished the medication If your symptoms persist, change or worsen significantly before you can contact your personal physician then please, without delay, go to the emergency department for further evaluation. Follow-up with PCP in 7-10 days or sooner if needed Follow up with PCP soon in regards to your blood pressure which is elevated above threshold for referral. Blood pressure above 120/80 may indicate pre- hypertension. minimal elevation 128/88 Patient Language: Ukrainian Prescriptions: New amoxicillin-pot clavulanate 875-125 mg tablet 1 tablet PO Q12H Qty: 20 0RF Rx Instructions: take all doses of medication recommend taking probiotic while taking this medication No Action ondansetron 4 mg tablet,disintegrating 4 mg PO Q6H PRN (Reason: nausea and vomiting) Qty: 14 0RF Follow-up/Referrals: Homer,Deon Denton MD [Primary Care Provider, Unknown] Time of Disposition: 08:31 Quality [place] Coma Scale Eyes: Open Verbal: Oriented and Alert Motor: Follows Commands [place] Coma Total Score: 15
== END 2025-02-13 08:40 | disposition home or self-care (01) ==
PROVIDERS: Emergency Provider Registered Nurse; PCP Family Medicine
DX: J01.40 Acute pansinusitis, unspecified (principal)
CPT/HCPCS: 99213; G0463